=== PATIENT | female | born 1960 | race Caucasian/White ===

== ENCOUNTER 2017-01-31 23:00 | Inpatient (IN) | payer MEDICARE, MEDICAID ==
[~2017-01-31] VITALS: Ht 160 cm; Wt 67.1 kg
[~2017-01-31 23:00] MED LIST: ASPI81TA2 PO; Aspirin PO; CLOP75TA PO; CYCL10TA2 PO; FLUT1DIS3 INH; Guaifenesin PO; Hydrocodone Bit/Acetaminophen PO; Ipratropium/Albuterol Sulfate NEB; LEVO750T31 PO; METH4TAB2 PO; PANT40TA3 PO; VIT1TABL43 PO
[2017-01-31 23:30] LABS: BASO # 0.1 x10^3/uL (0.0-0.2); BASO % 1 % (0-3); EOS % 2 % (0-3); HEMATOCRIT 44.6 % (36.0-47.0); HEMOGLOBIN 14.8 g/dL (12.0-15.5); LYMPH # 2.7 x10^3/uL (1.0-4.8); LYMPH % 29 % (24-48); MEAN CORPUSCULAR HEMOGLOBIN 31 pg (25-35); MEAN CORPUSCULAR HGB CONC 33 g/dL (31-37); MEAN CORPUSCULAR VOLUME 92 fL (79-100); MONO % 8 % (0-9); NEUT % 61 % (31-73); PLATELET COUNT 248 x10^3/uL (140-400); RED BLOOD COUNT 4.84 x10^6/uL (3.50-5.40); RED CELL DISTRIBUTION WIDTH 12.9 % (11.5-14.5); WHITE BLOOD COUNT 9.5 x10^3/uL (4.0-11.0)
[2017-01-31] MEDS ORDERED: IPRATRPIUM/ALBUTEROL 0.5/2.5MG 3 ML NEBU. NEB ONE (23:30)
[2017-01-31] MEDS ORDERED: LABETALOL 20 MG/4 ML DISP.SYRIN. IVP ONE (23:30)
[2017-01-31 23:38] LABS: CALCIUM 9.4 mg/dL (8.5-10.1); CREATININE 0.6 mg/dL (0.6-1.0); GFR 102.7; POTASSIUM 3.6 mmol/L (3.5-5.1)
[2017-02-01] MEDS ORDERED: IOHEXOL 350 MG/ML 100ML VIAL. IV ONE (00:15)
[2017-02-01] MEDS ORDERED: CONTRAST GIVEN MC PRN (00:15)
--- NOTE | 2017-02-01 00:17 | RAD ---
CT head without contrast: Reason for examination: Speech problems and left arm pain. Axial images were obtained through the brain. No contrast was administered. Exposure: One or more of the following individualized dose reduction techniques were used for this examination: 1. Automated exposure control. 2. Adjustment of the mA and/or kV according to patient size. 3. Use of iterative reconstruction technique. Ventricular systems are symmetric and not abnormally dilated. No midline shift is seen. There is no evidence of intracranial hemorrhage, infarct, mass or edema. No abnormalities are seen in the orbits. The paranasal sinuses and mastoid air cells are clear. No acute abnormalities seen in the skull. Impression: No acute intracranial abnormality evident. Electronically signed by: Gisela Menard MD (Feb 01, 2017 00:16:13)
[2017-02-01] MEDS: IV NORMAL SALINE 1000ML BAG 1,000 ML IV SCH ×2 (01:00→11:00)
--- NOTE | 2017-02-01 01:02 | PHYS DOC ---
Past Medical History Past Medical History: COPD, Hypertension, Other Additional Past Medical Histor: BLOCKED BILAT ARTERIES Past Surgical History: Other Alcohol Use: None Drug Use: None Adult General Chief Complaint Chief Complaint: NEURO SYMPTOMS/DEFICITS HPI HPI This is a 56-year-old female who states she's had worsening left arm pain and some speech difficulties for the last several days. Patient did have an ultrasound performed yesterday that showed a near complete blockage of her left common carotid. Currently patient is speaking in complete sentences and does not have any speech forming difficulties on my assessment. She is complaining of some arm pain but has full sensation of her distal left arm and radial pulse is brisk and 2+. She denies any chest pain or shortness of breath. Review of Systems Review of Systems Constitutional: Denies fever or chills [] Eyes: Denies change in visual acuity, redness, or eye pain [] HENT: Denies nasal congestion or sore throat [] Respiratory: Denies cough or shortness of breath [] Cardiovascular: No additional information not addressed in HPI [] GI: Denies abdominal pain, nausea, vomiting, bloody stools or diarrhea [] : Denies dysuria or hematuria [] Musculoskeletal: Denies back pain or joint pain [] Integument: Denies rash or skin lesions [] Neurologic: Denies headache, focal weakness or sensory changes [] Endocrine: Denies polyuria or polydipsia [] Current Medications Current Medications Current Medications Medications (Trade) Dose Ordered Sig/Raymond Start Time Stop Time Status Last Admin Dose Admin Albuterol/ Ipratropium (Duoneb) 3 ml 1X ONCE 01/31/17 23:30 01/31/17 23:31 DC 01/31/17 23:31 3 ML Info (Do NOT chart on this entry -- for MONITORING) 1 each PRN DAILY PRN 02/01/17 00:15 02/01/17 22:34 DC Iohexol (Omnipaque 350 Mg/ml) 100 ml 1X ONCE 02/01/17 00:15 02/01/17 00:16 DC Labetalol HCl (Normodyne) 20 mg 1X ONCE 01/31/17 23:30 01/31/17 23:31 DC Allergies Allergies Allergies Coded Allergies Type Severity Reaction Last Updated Verified Penicillins Allergy Severe Swelling 04/07/14 Yes Physical Exam Physical Exam Constitutional: Well developed, well nourished, no acute distress, non-toxic appearance. [] HENT: Normocephalic, atraumatic, bilateral external ears normal, oropharynx moist, no oral exudates, nose normal. [] Eyes: PERRLA, EOMI, conjunctiva normal, no discharge. [] Neck: Normal range of motion, no tenderness, supple, no stridor. [] Cardiovascular:Heart rate regular rhythm, no murmur [] Lungs & Thorax: Bilateral breath sounds clear to auscultation [] Abdomen: Bowel sounds normal, soft, no tenderness, no masses, no pulsatile masses. [] Skin: Warm, dry, no erythema, no rash. [] Back: No tenderness, no CVA tenderness. [] Extremities: No tenderness, no cyanosis, no clubbing, ROM intact, no edema. [] Neurologic: Alert and oriented X 3, normal motor function, normal sensory function, no focal deficits noted. [] Psychologic: Affect normal, judgement normal, mood normal. [] Current Patient Data Vital Signs Vital Signs Date Time Temp Pulse Resp B/P Pulse Ox O2 Delivery O2 Flow Rate FiO2 02/01/17 00:00 234/91 01/31/17 23:45 82 92 Nasal Cannula 2 01/31/17 23:20 98.3 18 98.3 Lab Values Laboratory Tests Test 01/31/17 23:10 White Blood Count 9.5x10^3/uL (4.0-11.0) Red Blood Count 4.84x10^6/uL (3.50-5.40) Hemoglobin 14.8g/dL (12.0-15.5) Hematocrit 44.6% (36.0-47.0) Mean Corpuscular Volume 92fL (79-100) Mean Corpuscular Hemoglobin 31pg (25-35) Mean Corpuscular Hemoglobin Concent 33g/dL (31-37) Red Cell Distribution Width 12.9% (11.5-14.5) Platelet Count 248x10^3/uL (140-400) Neutrophils (%) (Auto) 61% (31-73) Lymphocytes (%) (Auto) 29% (24-48) Monocytes (%) (Auto) 8% (0-9) Eosinophils (%) (Auto) 2% (0-3) Basophils (%) (Auto) 1% (0-3) Neutrophils # (Auto) 5.8x10^3uL (1.8-7.7) Lymphocytes # (Auto) 2.7x10^3/uL (1.0-4.8) Monocytes # (Auto) 0.7x10^3/uL (0.0-1.1) Eosinophils # (Auto) 0.1x10^3/uL (0.0-0.7) Basophils # (Auto) 0.1x10^3/uL (0.0-0.2) Sodium Level 139mmol/L (136-145) Potassium Level 3.6mmol/L (3.5-5.1) Chloride Level 101mmol/L (98-107) Carbon Dioxide Level 29mmol/L (21-32) Anion Gap 9 (6-14) Blood Urea Nitrogen 5mg/dL (7-20) L Creatinine 0.6mg/dL (0.6-1.0) Estimated GFR (Cockcroft-Gault) 102.7 Glucose Level 144mg/dL (70-99) H Calcium Level 9.4mg/dL (8.5-10.1) Troponin I Quantitative < 0.017ng/mL (0.000-0.055) Laboratory Tests 01/31/17 23:10 Laboratory Tests 01/31/17 23:10 EKG EKG EKG as interpreted by me shows a sinus rhythm with rate of 82 bpm. There are some mild ST flattening seen in V4 to V6, leads 1-3. This EKG does not meet STEMI criteria. Intervals are normal. Radiology/Procedures Radiology/Procedures CT head without contrast: Reason for examination: Speech problems and left arm pain. Axial images were obtained through the brain. No contrast was administered. Exposure: One or more of the following individualized dose reduction techniques were used for this examination: 1. Automated exposure control. 2. Adjustment of the mA and/or kV according to patient size. 3. Use of iterative reconstruction technique. Ventricular systems are symmetric and not abnormally dilated. No midline shift is seen. There is no evidence of intracranial hemorrhage, infarct, mass or edema. No abnormalities are seen in the orbits. The paranasal sinuses and mastoid air cells are clear. No acute abnormalities seen in the skull. Impression: No acute intracranial abnormality evident. CT angiogram of the chest pre and post contrast: Reason for examination: Left arm pain. Evaluate for dissection. Comparison is made to previous study dated 05/04/2007. Helical images were obtained through the chest pre and post intravenous administration of 90 cc Omnipaque 350 using angiographic protocol. 3D MIPS reconstruction was performed in sagittal and coronal planes and volume rendered images were obtained. Exposure: One or more of the following individualized dose reduction techniques were used for this examination: 1. Automated exposure control. 2. Adjustment of the mA and/or kV according to patient size. 3. Use of iterative reconstruction technique. No abnormalities seen in the thyroid gland. The trachea and mainstem bronchi show no intraluminal lesions. No abnormalities seen in the esophagus. The thoracic aorta shows no aneurysmal dilatation or evidence of dissection. There appears to be normal blood flow in the right brachiocephalic artery. No blood flow is seen in the left common carotid artery. There is severe stenosis at the origin of the left subclavian artery. The heart size is normal with no pericardial effusion evident. There is no evidence of pulmonary embolus. There does appear to be some linear density consistent with atelectasis in the right middle lobe distribution and in the posterior medial right upper lobe. There also appears to be a small pleural-based parenchymal density anterior laterally at the right lung base in the lateral costophrenic angle measuring 1.2 centimeters in size. Followup is recommended. No pleural effusions or pneumothorax are seen. No abnormalities seen in the visualized portion of the liver, at the spleen, pancreas or adrenal glands. No cholelithiasis is evident. There is some mural plaque in the infrarenal abdominal aorta. Impression: No vascular flow in the left common carotid artery. Severe stenosis at the origin of the left subclavian artery. No thoracic aortic aneurysm or dissection. Mural plaque in the infrarenal abdominal aorta. Linear densities consistent with atelectasis in the right upper and middle lobe distribution. 1.2 millimeter pleural based pulmonary nodule anterior laterally in the right costophrenic angle. Electronically signed by: Gisela Menard MD (Feb 01, 2017 01:29:22) Portable one view of the chest as interpreted by the radiologist does not reveal any cardiopulmonary process. Course & Med Decision Making Course & Med Decision Making Pertinent Labs and Imaging studies reviewed. (See chart for details) This 56-year-old female who's having significant left arm pain with some speech wearing difficulties will be admitted to the hospital for further evaluation and treatment. A CT of her chest revealed some left subclavian artery stenosis as well as some left carotid stenosis that I would like her to be further evaluated for with vascular and neurology consult area CT of her head was unremarkable. Her portable chest x-ray did not reveal any acute abnormalities. Her blood work was unrevealing. A dose of labetalol was given for her elevated blood pressure. I discussed her case with the hospitalist, Dr. Nixon, who agreed to accept the patient for further evaluation. Dragon Disclaimer Dragon Disclaimer This electronic medical record was generated, in whole or in part, using a voice recognition dictation system. Departure Departure Impression: Primary Impression: Carotid stenosis Additional Impression: Difficulty with speech Disposition: 09 ADMITTED INPATIENT Admitting Physician: Jessie Nixon Condition: STABLE Referrals: SANJEEV GONCALVES MD (PCP) Scripts Diltiazem Hcl (Diltiazem 24HR Cd)120 Mg Cap.er.01p185 Mg PO DAILY 30 Days Prov:JESSIE NIXON MD 02/01/17 Problem Qualifiers SOPHIE GORMAN DO Feb 01, 2017 01:02
[2017-02-01] MEDS ORDERED: ONDANSETRON PF 4 MG/2 ML VIAL. IV PRN (01:15)
--- NOTE | 2017-02-01 01:18 | EKG ---
[facility] [address] [place] [address] Test Date: 2017-01-31 Test Time: 23:13:36 Pat Name: ELEAZAR MEDEIROS Department: Room: Gender: F Nurse Gynecology: : 1960 Requested By: SOPHIE GORMAN Order Number: [id number] Reading MD: Measurements Intervals [place] Rate: 82 P: 64 PA: 134 QRS: 47 QRSD: 76 T: 24 QT: 356 QTc: 419 Interpretive Statements SINUS RHYTHM T ABNORMALITY IN INFERIOR LEADS ABNORMAL ECG RI6.01 No previous ECG available for comparison
--- NOTE | 2017-02-01 01:30 | RAD ---
CT angiogram of the chest pre and post contrast: Reason for examination: Left arm pain. Evaluate for dissection. Comparison is made to previous study dated 05/04/2007. Helical images were obtained through the chest pre and post intravenous administration of 90 cc Omnipaque 350 using angiographic protocol. 3D MIPS reconstruction was performed in sagittal and coronal planes and volume rendered images were obtained. Exposure: One or more of the following individualized dose reduction techniques were used for this examination: 1. Automated exposure control. 2. Adjustment of the mA and/or kV according to patient size. 3. Use of iterative reconstruction technique. No abnormalities seen in the thyroid gland. The trachea and mainstem bronchi show no intraluminal lesions. No abnormalities seen in the esophagus. The thoracic aorta shows no aneurysmal dilatation or evidence of dissection. There appears to be normal blood flow in the right brachiocephalic artery. No blood flow is seen in the left common carotid artery. There is severe stenosis at the origin of the left subclavian artery. The heart size is normal with no pericardial effusion evident. There is no evidence of pulmonary embolus. There does appear to be some linear density consistent with atelectasis in the right middle lobe distribution and in the posterior medial right upper lobe. There also appears to be a small pleural-based parenchymal density anterior laterally at the right lung base in the lateral costophrenic angle measuring 1.2 centimeters in size. Followup is recommended. No pleural effusions or pneumothorax are seen. No abnormalities seen in the visualized portion of the liver, at the spleen, pancreas or adrenal glands. No cholelithiasis is evident. There is some mural plaque in the infrarenal abdominal aorta. Impression: No vascular flow in the left common carotid artery. Severe stenosis at the origin of the left subclavian artery. No thoracic aortic aneurysm or dissection. Mural plaque in the infrarenal abdominal aorta. Linear densities consistent with atelectasis in the right upper and middle lobe distribution. 1.2 millimeter pleural based pulmonary nodule anterior laterally in the right costophrenic angle. Electronically signed by: Gisela Menard MD (Feb 01, 2017 01:29:22)
[2017-02-01 01:40] VITALS: BP 143/81
--- NOTE | 2017-02-01 01:57 | ACF ---
Admission Forms Criteria HYPERTENSION Clinical Indications for Admission to Inpatient Care ( Place "X" for any and all applicable criteria): Admission is indicated for ANY ONE of the following(1)(2)(3)(4): [ ]I. Hypertensive emergency, with evidence of acute and progressing target organ disease as indicated by ANY ONE of the following: [ ]a) Hypertensive encephalopathy (eg, confusion, altered mental status) [ ]b) Cerebral infarction [ ]c) Intracranial hemorrhage [ ]d) Myocardial ischemia or infarction [ ]e) Pulmonary edema [ ]f) Aortic dissection [ ]g) Seizure [ ]h) Acute renal insufficiency [ ]i) Papilledema [ ]j) Microangiopathic hemolytic anemia [ ]II. Adrenergic crisis (eg, severe hypertension due to pheochromocytoma crisis, cocaine or amphetamine intoxication, or clonidine withdrawal) [X]III. Severe hypertension (SBP greater than 180 mmHg or DBP greater than 110 mmHg or greater than the 95th percentile for age, gender, and height in pediatric patients) that cannot be controlled (eg, to SBP less than 160 mmHg and DBP less than 100 mmHg in adults) by treatment with oral medication in emergency department or observation care Extended stay beyond goal length of stay may be needed for(11)(12)(13): [ ]a) Persistent hypertensive encephalopathy [ ]b) Continuation of pulmonary edema [ ]c) Recurring or persistent severe hypertension [ ]d) Target organ damage (eg, angina, stroke, aortic dissection) [ ]e) Associated renal insufficiency The original [facility] content created by [employer] has been revised. The portions of the content which have been revised are identified through the use of italic text or in bold, and [email or web address] has neither reviewed nor approved the modified material. All other unmodified content is copyright [facility]. Please see references footnoted in the original [facility] edition 2016 Admission Criteria Met?: Yes NONA NG Feb 01, 2017 01:57
[2017-02-01] MEDS ORDERED: PROAIR HFA8.5 GM INH (02:42)
--- NOTE | 2017-02-01 07:35 | PDOC2 ---
CARDIAC CONSULT DATE OF CONSULT Date of Consult DATE: 02/01/17 TIME: 07:31 REASON FOR CONSULT Reason for Consult: Chest pain REFERRING PHYSICIAN Referring Physician: Chance SOURCE Source: Chart review, Patient PAST MEDICAL HISTORY Past Medical History Pulmonary: COPD, Other (SOY using oxygen at night) CENTRAL NERVOUS SYSTEM: Other (denies) GI: GERD Heme/Onc: No pertinent hx Hepatobiliary: No pertinent hx Psych: No pertinent hx Musculoskeletal: Osteoarthritis Rheumatologic: No pertinent hx Infectious disease: No pertinent hx ENT: No pertinent hx Renal/: No pertinent hx Endocrine: No pertinent hx Dermatology: No pertinent hx Grav: 7 (2 miscarriages) Para: 5 FAMILY HISTORY Family History Father ESRD and mother with DM SOCIAL HISTORY Smoke: <1 pack per day ALCOHOL: none Drugs: None Lives: with Family Domestic Violence: Neg PAST SURGICAL HISTORY Past Surgical History Esophageal dilatation, Left CEA, Right iliac artery angioplasty. CURRENT MEDICATIONS CURRENT MEDICATIONS Current Medications Medications (Trade) Dose Ordered Sig/Raymond Route PRN Reason Start Time Stop Time Status Last Admin Dose Admin Albuterol/ Ipratropium 3 ml 3 ml 1X ONCE NEB 01/31/17 23:30 01/31/17 23:31 DC 01/31/17 23:31 Sodium Chloride (Iv Sodium Chloride 0.9% 1000ml Bag) 1,000 ml @ 100 mls/hr Q10H IV 02/01/17 01:00 02/02/17 00:59 02/01/17 01:00 ALLERGIES ALLERGIES: Coded Allergies: Penicillins (Verified Allergy, Severe, Swelling, 04/07/14) VITALS VITALS Vital Signs Date Time Temp Pulse Resp B/P Pulse Ox O2 Delivery O2 Flow Rate FiO2 02/01/17 02:42 74 02/01/17 01:40 97.6 22 143/81 91 Nasal Cannula 2.0 97.6 LABS Lab: Laboratory Tests Test 01/31/17 23:10 White Blood Count 9.5x10^3/uL (4.0-11.0) Red Blood Count 4.84x10^6/uL (3.50-5.40) Hemoglobin 14.8g/dL (12.0-15.5) Hematocrit 44.6% (36.0-47.0) Mean Corpuscular Volume 92fL (79-100) Mean Corpuscular Hemoglobin 31pg (25-35) Mean Corpuscular Hemoglobin Concent 33g/dL (31-37) Red Cell Distribution Width 12.9% (11.5-14.5) Platelet Count 248x10^3/uL (140-400) Neutrophils (%) (Auto) 61% (31-73) Lymphocytes (%) (Auto) 29% (24-48) Monocytes (%) (Auto) 8% (0-9) Eosinophils (%) (Auto) 2% (0-3) Basophils (%) (Auto) 1% (0-3) Neutrophils # (Auto) 5.8x10^3uL (1.8-7.7) Lymphocytes # (Auto) 2.7x10^3/uL (1.0-4.8) Monocytes # (Auto) 0.7x10^3/uL (0.0-1.1) Eosinophils # (Auto) 0.1x10^3/uL (0.0-0.7) Basophils # (Auto) 0.1x10^3/uL (0.0-0.2) Sodium Level 139mmol/L (136-145) Potassium Level 3.6mmol/L (3.5-5.1) Chloride Level 101mmol/L (98-107) Carbon Dioxide Level 29mmol/L (21-32) Anion Gap 9 (6-14) Blood Urea Nitrogen 5mg/dL (7-20) Creatinine 0.6mg/dL (0.6-1.0) Estimated GFR (Cockcroft-Gault) 102.7 Glucose Level 144mg/dL (70-99) Calcium Level 9.4mg/dL (8.5-10.1) Troponin I Quantitative < 0.017ng/mL (0.000-0.055) TIERA PRUITT APRN Feb 01, 2017 07:35
[2017-02-01 07:50] VITALS: BP 177/75
[2017-02-01 08:03] VITALS: BP 121/57
--- NOTE | 2017-02-01 08:09 | RAD ---
Indication arm pain. A single view of the chest was obtained. Comparison is made to a study 04/07/2014. The heart and pulmonary vessels appear normal. The lungs are clear. There is no pleural fluid or pneumothorax. The bony structures appear grossly intact. IMPRESSION: No acute finding apparent in the chest
--- NOTE | 2017-02-01 08:30 | CONS ---
DATE OF CONSULTATION: 02/01/2017 REASON FOR CONSULTATION: Left arm pain. HISTORY OF PRESENT ILLNESS: The patient is a 56-year-old woman who comes to the hospital due to progressive left arm pain. She reports that over the last several weeks she has had left arm and shoulder pain to a point where she has had difficulty using the arm. She reports the pain does not always occur with exertion and can sometimes also occur with rest. She denies any obvious paraesthesias, but just has throbbing pain. Of note, she has prior vascular history as detailed below. The patient has chronic longstanding dyspnea related to her COPD and smoking and uses oxygen at nighttime, but denies any current chest pain. She has not had any syncope or palpitations. PAST MEDICAL HISTORY: 1. COPD. 2. Hypertension. 3. Peripheral vascular disease, status post right common carotid to left internal carotid artery bypass with Dr. Villavicencio. The patient also has a severe left subclavian stenosis on prior peripheral angiogram. ALLERGIES: PENICILLINS. FAMILY HISTORY: Noncontributory. 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 She reports alcohol use occasionally and smokes cigarettes. REVIEW OF SYSTEMS: Negative for 10 out of 14 systems reviewed unless otherwise mentioned above in HPI. CURRENT CARDIOVASCULAR MEDICATION: Aspirin 81 mg daily. PHYSICAL EXAMINATION: VITAL SIGNS: Afebrile, heart rate 84, blood pressure 234/91 initially and now down to 143/81 after being given labetalol 20 mg IV push x 1. GENERAL: She is alert ad oriented, in no acute distress. HEAD AND NECK: Unremarkable. CARDIAC: Regular rate and rhythm without any obvious murmurs, rubs or gallops. LUNGS: Clear to auscultation bilaterally. ABDOMEN: Soft, nontender and nondistended. NEUROLOGIC: No focal deficits. EXTREMITIES: Diminished left radial pulses. 2+ right radial pulse. Diminished pedal pulses. PSYCHIATRIC: Normal affect and mood. MUSCULOSKELETAL: No trauma. DIAGNOSTIC STUDIES: CTA of the chest today reveals left common carotid artery occlusion. There is severe stenosis of the left subclavian artery. No obvious thoracic aortic aneurysm or dissection is identified. Coronary angiogram performed in 04/2016 demonstrates no significant coronary artery disease with preserved LV systolic function. IMPRESSION: 1. Left arm pain, likely secondary to severe left subclavian stenosis. 2. Malignancy hypertension. 3. Peripheral vascular disease as noted above. 4. Tobacco abuse. 5. Chronic obstructive pulmonary disease. RECOMMENDATIONS: 1. We will start the patient on an antihypertensive regimen to help better control her blood pressure once her home medications are clarified. 2. Could consider initiation of dual antiplatelet therapy with aspirin and Plavix, but we will await evaluation by Vascular Surgery. Her subclavian stenosis can likely be treated endovascularly or surgically depending on recommendations from Vascular Surgery. We would be happy to stent her endovascularly. The patient wishes to definitely leave today as it is her granddaughter's birthday and schedule any procedures on an outpatient basis. From a cardiac perspective, she does not need to be admitted after today. We will initiate her on medical therapy for her hypertension. Thank you for this consultation. CHIKA ENCISO MD DR: CORKY/louis JOB#: [id number] / [id number]
[2017-02-01] MEDS ORDERED: DILTIAZEM HCL 120 MG CAP.ER.24H PO SCH (09:00)
[2017-02-01 09:45] LABS: BACTERIA,URINE 0 /HPF (0-FEW); BILIRUBIN,URINE NEGATIVE (NEG); GLUCOSE,URINE NEGATIVE (NEG); NITRITE,URINE NEGATIVE (NEG); PH,URINE 5.5; PROTEIN,URINE NEGATIVE (NEG-TRACE); RBC,URINE 0 /HPF (0-2); SQUAMOUS EPITHELIAL CELL,UR MOD /LPF; UROBILINOGEN,URINE 0.2 mg/dL (0.2 mg/dL); WBC,URINE 0 /HPF (0-4)
[2017-02-01 11:29] VITALS: BP 177/73
--- NOTE | 2017-02-01 11:48 | PDOC ---
PROGRESS NOTES Subjective Subjective Patient reports left arm pain is some better than at admission. Very anxious to return home today as it is her granddaughter's birthday and she is her caregiver. Objective Objective Vital Signs Date Time Temp Pulse Resp B/P Pulse Ox O2 Delivery O2 Flow Rate FiO2 02/01/17 10:48 74 189/87 02/01/17 08:00 Nasal Cannula 2.0 02/01/17 07:50 98.4 19 98.4 02/01/17 01:40 91 Intake and Output 02/01/17 07:00 Intake Total 500 ml Output Total 300 ml Balance 200 ml Intake Oral 500 ml Output Urine Total 300 ml Physical Exam Abdomen: Normal bowel sounds, Soft, No tenderness Heart: Regular rate Extremities: No edema General: Alert, Oriented X3, No acute distress Lungs: Other (BS moderately decreased throughout, scant expiratory wheezes present) Assessment Assessment Problems Medical Problems: (1) Carotid stenosis Status: Acute (2) Difficulty with speech Status: Acute Plan Plan of Care 1. Left subclavian stenosis - significant stenosis seen on CT. Cardiology recommends treatment of this, waiting for Vascular Surgery input today. Patient prefers to go home today, if possible, and return for treatment next week or as advised. Continue ASA. Patient had been on Plavix in the past but had stopped taking as it upset her stomach. Cardiac cath last April showed preserved EF and no significant CAD. 2. HTN - patient's BP significantly elevated on admission yesterday, and at last OV with Dr East. Had not been on medication for this in the past. Started on Cardizem by Cardiology, will discharge with prescription for this. 3. COPD with chronic respiratory failure - still smoking but realizes she needs to try to stop. Discussed. Using an electronic cigarette, encouraged to continue to work on this. 4. hyperglycemia - glucose significantly elevated on admission lab. Patient admits she has been drinking a lot of Dr Sanches and recognizes she needs to cut back on this. Follow up with Dr East for further evaluation of her blood sugar. 5. hyperlipidemia - patient had been on Simvastatin but stopped taking months ago, advised to resume. 6. chronic leg pain - continue [place], follow up in office for this. Comment Review of Relevant I have reviewed the following items shanthi (where applicable) has been applied. Labs Laboratory Tests Test 01/31/17 23:10 02/01/17 05:40 White Blood Count 9.5x10^3/uL (4.0-11.0) Red Blood Count 4.84x10^6/uL (3.50-5.40) Hemoglobin 14.8g/dL (12.0-15.5) Hematocrit 44.6% (36.0-47.0) Mean Corpuscular Volume 92fL (79-100) Mean Corpuscular Hemoglobin 31pg (25-35) Mean Corpuscular Hemoglobin Concent 33g/dL (31-37) Red Cell Distribution Width 12.9% (11.5-14.5) Platelet Count 248x10^3/uL (140-400) Neutrophils (%) (Auto) 61% (31-73) Lymphocytes (%) (Auto) 29% (24-48) Monocytes (%) (Auto) 8% (0-9) Eosinophils (%) (Auto) 2% (0-3) Basophils (%) (Auto) 1% (0-3) Neutrophils # (Auto) 5.8x10^3uL (1.8-7.7) Lymphocytes # (Auto) 2.7x10^3/uL (1.0-4.8) Monocytes # (Auto) 0.7x10^3/uL (0.0-1.1) Eosinophils # (Auto) 0.1x10^3/uL (0.0-0.7) Basophils # (Auto) 0.1x10^3/uL (0.0-0.2) Sodium Level 139mmol/L (136-145) Potassium Level 3.6mmol/L (3.5-5.1) Chloride Level 101mmol/L (98-107) Carbon Dioxide Level 29mmol/L (21-32) Anion Gap 9 (6-14) Blood Urea Nitrogen 5mg/dL (7-20) Creatinine 0.6mg/dL (0.6-1.0) Estimated GFR (Cockcroft-Gault) 102.7 Glucose Level 144mg/dL (70-99) Calcium Level 9.4mg/dL (8.5-10.1) Troponin I Quantitative < 0.017ng/mL (0.000-0.055) Urine Collection Type Unknown Urine Color Yellow Urine Clarity Clear Urine pH 5.5 Urine Specific [place] <=1.005 Urine Protein Negativemg/dL (NEG-TRACE) Urine Glucose (UA) Negativemg/dL (NEG) Urine Ketones (Stick) Negativemg/dL (NEG) Urine Blood Negative (NEG) Urine Nitrite Negative (NEG) Urine Bilirubin Negative (NEG) Urine Urobilinogen Dipstick 0.2mg/dL (0.2 mg/dL) Urine Leukocyte Esterase Negative (NEG) Urine RBC 0/HPF (0-2) Urine WBC 0/HPF (0-4) Urine Squamous Epithelial Cells Mod/LPF Urine Bacteria 0/HPF (0-FEW) Urine Mucus Slight/LPF Laboratory Tests Test 01/31/17 23:10 02/01/17 05:40 White Blood Count 9.5x10^3/uL (4.0-11.0) Red Blood Count 4.84x10^6/uL (3.50-5.40) Hemoglobin 14.8g/dL (12.0-15.5) Hematocrit 44.6% (36.0-47.0) Mean Corpuscular Volume 92fL (79-100) Mean Corpuscular Hemoglobin 31pg (25-35) Mean Corpuscular Hemoglobin Concent 33g/dL (31-37) Red Cell Distribution Width 12.9% (11.5-14.5) Platelet Count 248x10^3/uL (140-400) Neutrophils (%) (Auto) 61% (31-73) Lymphocytes (%) (Auto) 29% (24-48) Monocytes (%) (Auto) 8% (0-9) Eosinophils (%) (Auto) 2% (0-3) Basophils (%) (Auto) 1% (0-3) Neutrophils # (Auto) 5.8x10^3uL (1.8-7.7) Lymphocytes # (Auto) 2.7x10^3/uL (1.0-4.8) Monocytes # (Auto) 0.7x10^3/uL (0.0-1.1) Eosinophils # (Auto) 0.1x10^3/uL (0.0-0.7) Basophils # (Auto) 0.1x10^3/uL (0.0-0.2) Sodium Level 139mmol/L (136-145) Potassium Level 3.6mmol/L (3.5-5.1) Chloride Level 101mmol/L (98-107) Carbon Dioxide Level 29mmol/L (21-32) Anion Gap 9 (6-14) Blood Urea Nitrogen 5mg/dL (7-20) Creatinine 0.6mg/dL (0.6-1.0) Estimated GFR (Cockcroft-Gault) 102.7 Glucose Level 144mg/dL (70-99) Calcium Level 9.4mg/dL (8.5-10.1) Troponin I Quantitative < 0.017ng/mL (0.000-0.055) Urine Collection Type Unknown Urine Color Yellow Urine Clarity Clear Urine pH 5.5 Urine Specific [place] <=1.005 Urine Protein Negativemg/dL (NEG-TRACE) Urine Glucose (UA) Negativemg/dL (NEG) Urine Ketones (Stick) Negativemg/dL (NEG) Urine Blood Negative (NEG) Urine Nitrite Negative (NEG) Urine Bilirubin Negative (NEG) Urine Urobilinogen Dipstick 0.2mg/dL (0.2 mg/dL) Urine Leukocyte Esterase Negative (NEG) Urine RBC 0/HPF (0-2) Urine WBC 0/HPF (0-4) Urine Squamous Epithelial Cells Mod/LPF Urine Bacteria 0/HPF (0-FEW) Urine Mucus Slight/LPF Medications Current Medications Albuterol/ Ipratropium (Duoneb) 3 ml 1X ONCE NEB Last administered on t 23:31; Start 01/31/17 at 23:30; Stop 01/31/17 at 23:31; Status DC Labetalol HCl (Normodyne) 20 mg 1X ONCE IVP ; Start 01/31/17 at 23:30; Stop at 23:31; Status DC Iohexol (Omnipaque 350 Mg/ml) 100 ml 1X ONCE IV ; Start 02/01/17 at 00:15; Stop 02/01/17 at 00:16; Status DC Info (Do NOT chart on this entry -- for MONITORING) 1 each PRN DAILY PRN MC SEE COMMENTS; Start 02/01/17 at 00:15; Stop 02/03/17 at 00:14 Ondansetron HCl 4 mg 4 mg PRN Q8HRS PRN IV NAUSEA/VOMITING; Start 02/01/17 at 01:15; Stop 02/02/17 at 01:14 Sodium Chloride (Iv Sodium Chloride 0.9% 1000ml Bag) 1,000 ml @ 100 mls/hr Q10H IV Last administered on 02/01/17 01:00; Start 02/01/17 at 01:00; Stop at 00:59 Diltiazem HCl (Cardizem 24hr Cd) 120 mg DAILY PO Last administered on 10:48; Start 02/01/17 at 09:00 Active Scripts Active Reported Proair Hfa Inhaler (Albuterol Sulfate) 8.5 Gm Hfa.aer.ad 2 Puff INH PRN Q6HRS PRN Aspirin 81 Mg Tab.chew 1 Tab PO DAILY Vitals/I & O Vital Sign - Last 24 Hours 01/31/17 01/31/17 01/31/17 01/31/17 23:00 23:15 23:20 23:30 Temp 98.3 98.3 Pulse 86 93 84 Resp 18 B/P 201/115 201/115 143/81 Pulse Ox 93 93 O2 Delivery Nasal Cannula Nasal Cannula O2 Flow Rate 2 2 01/31/17 01/31/17 01/31/17 01/31/17 23:30 23:30 23:30 23:32 Pulse 80 B/P 163/76 90/66 Pulse Ox 91 92 O2 Delivery Nasal Cannula Nasal Cannula O2 Flow Rate 2 2.0 01/31/17 02/01/17 02/01/17 02/01/17 23:45 00:00 00:30 01:00 Pulse 82 90 B/P 160/77 234/91 144/70 Pulse Ox 92 91 O2 Delivery Nasal Cannula Nasal Cannula O2 Flow Rate 2 2 02/01/17 02/01/17 02/01/17 02/01/17 01:30 01:40 02:42 07:50 Temp 97.6 98.4 97.6 98.4 Pulse 84 74 71 Resp 22 19 B/P 143/81 177/75 Pulse Ox 91 O2 Delivery Nasal Cannula Nasal Cannula Nasal Cannula O2 Flow Rate 2.0 2.0 2.0 02/01/17 02/01/17 02/01/17 08:00 08:03 10:48 Pulse 73 74 B/P 121/57 189/87 O2 Delivery Nasal Cannula O2 Flow Rate 2.0 Intake and Output 01/31/17 01/31/17 02/01/17 15:00 23:00 07:00 Intake Total 500 ml Output Total 300 ml Balance 200 ml JOSE CAN MD Feb 01, 2017 11:48
[2017-02-01] MEDS ORDERED: DILT120C97 PO (11:51)
[2017-02-01] MEDS ORDERED: ASPIRIN 81 MG TAB.CHEW PO SCH (12:30)
[2017-02-01 14:09] VITALS: BP 174/93
--- NOTE | 2017-02-01 15:20 | DS ---
DATE OF DISCHARGE: 02/01/2017 CHIEF COMPLAINT: Left arm pain. HISTORY OF PRESENT ILLNESS: The patient is a 56-year-old female with known peripheral artery disease who presented to the Emergency Room with the above complaint. She reports a several-week history of increasing pain in the left hand and arm. The pain could occur with rest or with exertion. She chronically takes hydrocodone for leg pain, but this was not treating her arm pain effectively. When seen in the Emergency Room, her blood pressure was initially 234/91, this improved after one dose of IV labetalol. A CTA of the chest showed severe stenosis of the left subclavian artery and the patient was admitted for further treatment. PAST MEDICAL HISTORY: Hyperlipidemia, peripheral artery disease, COPD with chronic respiratory failure; the patient is on oxygen at night, peripheral neuropathy, and GERD. PAST SURGICAL HISTORY: Left carotid endarterectomy in 2007, bilateral iliac artery angioplasty in 2009. ALLERGIES: THE PATIENT IS ALLERGIC TO PENICILLIN. HOME MEDICATIONS: Albuterol p.r.n., hydrocodone p.r.n., gabapentin 300 mg 1-2 times daily, meloxicam 15 mg daily, oxygen 2 liters per nasal cannula at bedtime, Dexilant 60 mg daily; the patient has recently been prescribed this, but had not started taking it yet, aspirin 81 mg daily, simvastatin 20 mg daily; the patient has not taken this for several months, Plavix 75 mg daily; the patient also stopped taking this as she felt it upsets her stomach. FAMILY HISTORY: Noncontributory. SOCIAL HISTORY: The patient is . She continues to smoke cigarettes about 1 pack per day. She does not drink alcohol to excess. REVIEW OF SYSTEMS: The patient denies fever or chills. She denies unusual shortness of air. She does have a chronic cough, but this does not seem worse to her recently. She denies chest pain or palpitations. She has had some epigastric discomfort and heartburn and is aware that the Dexilant could help her with this. She denies lower abdominal or pelvic pain, nausea or vomiting. She denies lower extremity edema. Her chronic leg pain has been fairly well controlled with her usual hydrocodone. PHYSICAL EXAMINATION: GENERAL: The patient is alert and oriented x 3, resting comfortably in bed, in no acute distress. HEENT: PERRL, EOMI, sclerae clear. Oropharynx: Mucous membranes moist. NECK: Supple, without lymphadenopathy. RESPIRATORY: Chest: Breath sounds are moderately decreased throughout with scant expiratory wheezes. CARDIOVASCULAR: Regular rate and rhythm without murmur. ABDOMEN: Soft, nontender, normoactive bowel sounds are present. EXTREMITIES: Without edema. HOSPITAL COURSE: Vascular Surgery has been consulted and it is hoped that they will be able to see her today. 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 Dr. Blakely feels that she is stable and could be discharged if vascular surgery is in agreement. She will need definitive treatment of this stenosis whether by the Vascular Surgeon's or Cardiology. We will not resume her Plavix at this time, as she was intolerant of it and it would need to be held anyway if surgery is anticipated. The patient is advised to continue aspirin daily. The patient does not have a history of hypertension, but her blood pressure was significantly elevated at her last office visit with Dr. East. Dr. Blakely has started her on a low dose of Cardizem for treatment of this and she is advised to continue this daily. The patient's chronic respiratory failure and COPD appear stable. She is, of course, strongly advised smoking cessation and she is aware of the need for this. She has started to use an electronic cigarette and is encouraged to continue to work on this. She had significant hyperglycemia on her admission lab with a glucose of 144. She denies a history of diabetes, but admits she has been drinking a large amount of Dr Pepper daily. She is advised to cut down on this and follow up with Dr. East as an outpatient for further evaluation of her blood sugar. The patient has hyperlipidemia. The importance of treatment for this was discussed with her and she is advised to resume the simvastatin, she had previously been prescribed. Her chronic leg pain appears stable with her usual hydrocodone. She will be discharged to home today if all consultants are in agreement. FINAL DIAGNOSES: 1. Left subclavian artery stenosis. 2. Hypertension. 3. Chronic obstructive pulmonary disease with chronic respiratory failure. 4. Hyperglycemia. 5. Hyperlipidemia. 6. Chronic leg pain. DISCHARGE MEDICATIONS: Remain the same as at admission with the addition of diltiazem-CD 120 mg daily. DISCHARGE INSTRUCTIONS: Follow up with Dr. East within 2 weeks. Follow up with consultants as advised. JOSE CAN MD DR: CHRISTIE/louis JOB#: [id number] / [id number] IVY
--- NOTE | 2017-02-01 17:26 | PDOC2 ---
CONSULT Date of Consult Date of Consult DATE: 02/01/17 TIME: 17:18 Reason for Consult Reason for Consult: Left arm pain, and weakness. History of Present Illness Reason for Visit: This patient is 56-year-old female who presented to the emergency room with complaint of left arm pain. Patient reports she is having a history of chronic pain in his left she hasn't noticed worsening of symptoms if she is using his arm more. Patient does not know if she has any known history of disc disease in her cervical spine. Patient presented in the emergency room her blood pressures were elevated in 200s. She was given dose of labetalol. She also had a CTA of chest which showed severe stenosis of left subclavian artery. Patient also has a history of left CEA. Patient currently denies any symptoms of difficulty swallowing, speaking, headache, fever, chest pain, shortness of breath, weakness. Past Medical History Cardiovascular: HTN, Hyperlipidemia, Other Pulmonary: COPD, Other CENTRAL NERVOUS SYSTEM: Other GI: GERD Heme/Onc: No pertinent hx Hepatobiliary: No pertinent hx Psych: No pertinent hx Musculoskeletal: Osteoarthritis Rheumatologic: No pertinent hx Infectious disease: No pertinent hx Renal/: No pertinent hx Endocrine: No pertinent hx Social History ALCOHOL: none Drugs: None Lives: with Family Domestic Violence: Neg Current Problem List Problem List Problems Medical Problems: (1) Carotid stenosis Status: Acute (2) Difficulty with speech Status: Acute (3) Subclavian artery stenosis, left Status: Acute Current Medications Current Medications Current Medications Albuterol/ Ipratropium (Duoneb) 3 ml 1X ONCE NEB Last administered on t 23:31; Start 01/31/17 at 23:30; Stop 01/31/17 at 23:31; Status DC Labetalol HCl (Normodyne) 20 mg 1X ONCE IVP ; Start 01/31/17 at 23:30; Stop at 23:31; Status DC Iohexol (Omnipaque 350 Mg/ml) 100 ml 1X ONCE IV ; Start 02/01/17 at 00:15; Stop 02/01/17 at 00:16; Status DC Info (Do NOT chart on this entry -- for MONITORING) 1 each PRN DAILY PRN MC SEE COMMENTS; Start 02/01/17 at 00:15; Stop 02/03/17 at 00:14 Ondansetron HCl 4 mg 4 mg PRN Q8HRS PRN IV NAUSEA/VOMITING; Start 02/01/17 at 01:15; Stop 02/02/17 at 01:14 Sodium Chloride (Iv Sodium Chloride 0.9% 1000ml Bag) 1,000 ml @ 100 mls/hr Q10H IV Last administered on 02/01/17 01:00; Start 02/01/17 at 01:00; Stop at 00:59 Diltiazem HCl (Cardizem 24hr Cd) 120 mg DAILY PO Last administered on 10:48; Start 02/01/17 at 09:00 Aspirin (Children'S Aspirin) 81 mg DAILY PO Last administered on 02/01/17 14: 10; Start 02/01/17 at 12:30 Active Scripts Active Reported Proair Hfa Inhaler (Albuterol Sulfate) 8.5 Gm Hfa.aer.ad 2 Puff INH PRN Q6HRS PRN Aspirin 81 Mg Tab.chew 1 Tab PO DAILY Allergies Allergies: Coded Allergies: Penicillins (Verified Allergy, Severe, Swelling, 04/07/14) Physical Exam Physical Exam REVIEW OF SYSTEMS: not [id number] review of systems. PHYSICAL EXAMINATION: General appearance is in acute distress. HEENT: Normocephalic and nontraumatic. Eyes, nose, ears, and throat are unremarkable. Neck is supple. No lymphadenopathy. No crepitus. Cardiovascular: S1, S2, regular rate and rhythm. Pulmonary: Clear to auscultation bilaterally. Abdomen: Bowel sounds are positive. Abdomen is soft, nontender, and nondistended. Extremities: No rash, lesions, or edema. No restriction of range of motion NEUROLOGICAL EXAMINATION: Alert Oriented to time, place and person. PERRL. EOMI. CN: no focal findings. Muscle tone: within normal. Muscle strength: good DTR: 1- 2 Plantar reflex: Flexor response bilaterally Gait: not examined in bed. Sensory exam: no abnormal findings. No obvious cerebellar signs elicited. Vitals VITALS Vital Signs Date Time Temp Pulse Resp B/P Pulse Ox O2 Delivery O2 Flow Rate FiO2 02/01/17 14:09 97.8 88 20 174/93 Nasal Cannula 2.0 97.8 02/01/17 01:40 91 Labs Labs Laboratory Tests Test 01/31/17 23:10 02/01/17 05:40 White Blood Count 9.5x10^3/uL (4.0-11.0) Red Blood Count 4.84x10^6/uL (3.50-5.40) Hemoglobin 14.8g/dL (12.0-15.5) Hematocrit 44.6% (36.0-47.0) Mean Corpuscular Volume 92fL (79-100) Mean Corpuscular Hemoglobin 31pg (25-35) Mean Corpuscular Hemoglobin Concent 33g/dL (31-37) Red Cell Distribution Width 12.9% (11.5-14.5) Platelet Count 248x10^3/uL (140-400) Neutrophils (%) (Auto) 61% (31-73) Lymphocytes (%) (Auto) 29% (24-48) Monocytes (%) (Auto) 8% (0-9) Eosinophils (%) (Auto) 2% (0-3) Basophils (%) (Auto) 1% (0-3) Neutrophils # (Auto) 5.8x10^3uL (1.8-7.7) Lymphocytes # (Auto) 2.7x10^3/uL (1.0-4.8) Monocytes # (Auto) 0.7x10^3/uL (0.0-1.1) Eosinophils # (Auto) 0.1x10^3/uL (0.0-0.7) Basophils # (Auto) 0.1x10^3/uL (0.0-0.2) Sodium Level 139mmol/L (136-145) Potassium Level 3.6mmol/L (3.5-5.1) Chloride Level 101mmol/L (98-107) Carbon Dioxide Level 29mmol/L (21-32) Anion Gap 9 (6-14) Blood Urea Nitrogen 5mg/dL (7-20) Creatinine 0.6mg/dL (0.6-1.0) Estimated GFR (Cockcroft-Gault) 102.7 Glucose Level 144mg/dL (70-99) Calcium Level 9.4mg/dL (8.5-10.1) Troponin I Quantitative < 0.017ng/mL (0.000-0.055) Urine Collection Type Unknown Urine Color Yellow Urine Clarity Clear Urine pH 5.5 Urine Specific [place] <=1.005 Urine Protein Negativemg/dL (NEG-TRACE) Urine Glucose (UA) Negativemg/dL (NEG) Urine Ketones (Stick) Negativemg/dL (NEG) Urine Blood Negative (NEG) Urine Nitrite Negative (NEG) Urine Bilirubin Negative (NEG) Urine Urobilinogen Dipstick 0.2mg/dL (0.2 mg/dL) Urine Leukocyte Esterase Negative (NEG) Urine RBC 0/HPF (0-2) Urine WBC 0/HPF (0-4) Urine Squamous Epithelial Cells Mod/LPF Urine Bacteria 0/HPF (0-FEW) Urine Mucus Slight/LPF Laboratory Tests Test 01/31/17 23:10 02/01/17 05:40 White Blood Count 9.5x10^3/uL (4.0-11.0) Red Blood Count 4.84x10^6/uL (3.50-5.40) Hemoglobin 14.8g/dL (12.0-15.5) Hematocrit 44.6% (36.0-47.0) Mean Corpuscular Volume 92fL (79-100) Mean Corpuscular Hemoglobin 31pg (25-35) Mean Corpuscular Hemoglobin Concent 33g/dL (31-37) Red Cell Distribution Width 12.9% (11.5-14.5) Platelet Count 248x10^3/uL (140-400) Neutrophils (%) (Auto) 61% (31-73) Lymphocytes (%) (Auto) 29% (24-48) Monocytes (%) (Auto) 8% (0-9) Eosinophils (%) (Auto) 2% (0-3) Basophils (%) (Auto) 1% (0-3) Neutrophils # (Auto) 5.8x10^3uL (1.8-7.7) Lymphocytes # (Auto) 2.7x10^3/uL (1.0-4.8) Monocytes # (Auto) 0.7x10^3/uL (0.0-1.1) Eosinophils # (Auto) 0.1x10^3/uL (0.0-0.7) Basophils # (Auto) 0.1x10^3/uL (0.0-0.2) Sodium Level 139mmol/L (136-145) Potassium Level 3.6mmol/L (3.5-5.1) Chloride Level 101mmol/L (98-107) Carbon Dioxide Level 29mmol/L (21-32) Anion Gap 9 (6-14) Blood Urea Nitrogen 5mg/dL (7-20) Creatinine 0.6mg/dL (0.6-1.0) Estimated GFR (Cockcroft-Gault) 102.7 Glucose Level 144mg/dL (70-99) Calcium Level 9.4mg/dL (8.5-10.1) Troponin I Quantitative < 0.017ng/mL (0.000-0.055) Urine Collection Type Unknown Urine Color Yellow Urine Clarity Clear Urine pH 5.5 Urine Specific [place] <=1.005 Urine Protein Negativemg/dL (NEG-TRACE) Urine Glucose (UA) Negativemg/dL (NEG) Urine Ketones (Stick) Negativemg/dL (NEG) Urine Blood Negative (NEG) Urine Nitrite Negative (NEG) Urine Bilirubin Negative (NEG) Urine Urobilinogen Dipstick 0.2mg/dL (0.2 mg/dL) Urine Leukocyte Esterase Negative (NEG) Urine RBC 0/HPF (0-2) Urine WBC 0/HPF (0-4) Urine Squamous Epithelial Cells Mod/LPF Urine Bacteria 0/HPF (0-FEW) Urine Mucus Slight/LPF Assessment/Plan Assessment/Plan This patient is 56-year-old female who presented to the emergency room with complaint of left arm pain. Patient reports she is having a history of chronic pain in his left she hasn't noticed worsening of symptoms if she is using his arm more. Patient does not know if she has any known history of disc disease in her cervical spine. Patient presented in the emergency room her blood pressures were elevated in 200s. She was given dose of labetalol. She also had a CTA of chest which showed severe stenosis of left subclavian artery. Patient also has a history of left CEA. Patient currently denies any symptoms of difficulty swallowing, speaking, headache, fever, chest pain, shortness of breath, weakness. Left subclavian artery stenosis Vascular evaluation History of hypertension continue treat and monitor Left side weakness. Chronic left arm pain We will check MRI C-spine to rule out any acute process Will check MRI brain to rule out any acute process. Continue aspirin for secondary stroke prevention. Patient may benefit from EMG nerve conduction studies to rule out any cervical radiculopathy. Hyperlipidemia continue medical Management. HA SWIFT MD Feb 01, 2017 17:26
--- NOTE | 2017-02-01 19:05 | RAD ---
PROCEDURE MRI OF THE HEAD WITHOUT CONTRAST MR OF THE CERVICAL SPINE WITHOUT CONTRAST HISTORY LEFT ARM NUMBNESS, SLURRED SPEECH TECHNIQUE MULTIPLANAR MULTI SEQUENCE IMAGES WERE OBTAINED. POSTCONTRAST IMAGES WERE PERFORMED THROUGH THE HEAD FOLLOWING INJECTION OF GADOLINIUM CONTRAST. COMPARISON SEPTEMBER 25, 2016 MR HEAD FINDINGS HEAD: THERE ARE FEW AREAS OF INCREASED SIGNAL INTENSITY IN THE DEEP WHITE MATTER ON FLAIR AND T2 IMAGES. THESE ARE CONSISTENT WITH CHRONIC ISCHEMIC CHANGE AND ARE STABLE SINCE THE PRIOR MR. THERE IS NO EVIDENCE OF ACUTE INFARCTION OR HEMORRHAGE. NO MASS LESION IS SEEN. THE VENTRICLES AND SULCI ARE NORMAL IN SIZE FOR THE PATIENT'S AGE. THE BASAL CISTERNS ARE WELL MAINTAINED. THERE IS NO SHIFT OF THE MIDLINE STRUCTURES. THERE IS NORMAL FLOW VOID IN THE MAJOR VENOUS SINUSES. C-SPINE: THE STUDY IS SLIGHTLY COMPROMISED BY MOTION. THE INTERVERTEBRAL DISCS ARE NORMAL IN APPEARANCE; THEY SHOW NO EVIDENCE OF BULGING OR FOCAL HNP. THERE IS NO SIGNIFICANT SPINAL STENOSIS. NO FORAMINAL STENOSIS IS APPRECIATED ON THIS STUDY. THE CERVICAL SPINAL CORD IS NORMAL IN APPEARANCE. BONE MARROW SIGNAL INTENSITY IS NORMAL IMPRESSION 1. MRI OF THE HEAD SHOWS NO ACUTE ABNORMALITY. THERE MILD CHRONIC ISCHEMIC CHANGES IN THE DEEP CEREBRAL WHITE MATTER WHICH HAVE NOT CHANGED SIGNIFICANTLY SINCE THE SEPTEMBER 25, 2016 STUDY. 2. MRI OF THE CERVICAL SPINE SHOWS NO SIGNIFICANT ABNORMALITY. THE STUDY IS SLIGHTLY COMPROMISED BY MOTION. Electronically signed by: Freda Burnett (Feb 01, 2017 19:03:14)
[2017-02-01 19:24] VITALS: BP 115/60
--- NOTE | 2017-02-01 19:31 | PDOC ---
Provider Note Provider Note vascular Pt anxious to go home tonight still notes persistent left shoulder pain Pt has a known left subclavian stenosis and proximal left CCA occlusion Her shoulder discomfort is not related to vascular disease Ok for d/c home from vascular standpoint. F/U with me in the offfice in 1 month KINA CHAWLA MD Feb 01, 2017 19:31
== END 2017-02-01 21:00 | disposition home or self-care (01) | DRG 300 ==
LOC: ER 23:00 → 2 NORTH 02-01 00:20
PROVIDERS: ADMIT Family Medicine; ATTEND Family Medicine
DX: I70.8 Atherosclerosis of other arteries (principal); J96.10 Chronic respiratory failure, unspecified whether with hypoxia or hypercapnia; E78.5 Hyperlipidemia, unspecified; F17.210 Nicotine dependence, cigarettes, uncomplicated; G89.29 Other chronic pain; I10 Essential (primary) hypertension; I73.9 Peripheral vascular disease, unspecified; J44.9 Chronic obstructive pulmonary disease, unspecified; K21.9 Gastro-esophageal reflux disease without esophagitis; G62.9 Polyneuropathy, unspecified; M19.90 Unspecified osteoarthritis, unspecified site; M79.602 Pain in left arm; M79.642 Pain in left hand; R73.9 Hyperglycemia, unspecified; Z88.0 Allergy status to penicillin; Z79.899 Other long term (current) drug therapy
CPT/HCPCS: 36415; 70450; 70551; 71010; 71275; 72141; 80048; 81001; 84484; 85027; 93005; 94640; J7030; J7620; 99285-25

== ENCOUNTER → 2018-02-17 | Outpatient (CLI) | payer MEDICARE, MEDICAID | END | disposition home or self-care (01) | LOC: RT 09:08 | DX: G47.33 Obstructive sleep apnea (adult) (pediatric) (principal) | CPT/HCPCS: G0399 ==

== ENCOUNTER → 2018-03-25 | Outpatient (CLI) | payer MEDICARE ==
[2018-03-25] MEDS: IOHEXOL 300 MG/ML 100ML VIAL. IV (11:45)
== END | disposition home or self-care (01) ==
LOC: CT 11:10
DX: K22.2 Esophageal obstruction (principal); J43.9 Emphysema, unspecified; D71 Functional disorders of polymorphonuclear neutrophils; I10 Essential (primary) hypertension; E78.00 Pure hypercholesterolemia, unspecified
CPT/HCPCS: 70492; Q9967

== ENCOUNTER → 2018-03-31 | Outpatient (CLI) | payer MEDICARE | END | disposition home or self-care (01) | LOC: RT 18:42 | DX: G47.33 Obstructive sleep apnea (adult) (pediatric) (principal); E78.5 Hyperlipidemia, unspecified; I10 Essential (primary) hypertension | CPT/HCPCS: 95811 ==

== ENCOUNTER → 2018-05-20 | Outpatient (CLI) | payer MEDICARE | END | disposition home or self-care (01) | LOC: US 15:13 | DX: R60.0 Localized edema (principal) | CPT/HCPCS: 93970 ==

== ENCOUNTER → 2018-07-22 | Outpatient (CLI) | payer MEDICARE ==
[2018-03-12 15:00] VITALS: BP 155/64
[~2018-07-22] MED LIST changes: +ASPI-630 PO; -ASPI81TA2 PO; +BUDE0.25 NEB; +DILT120C80 PO; +DILT180C2 PO; +IPRA3AMP29 NEB; +LACT1CAP19 PO; +PROAIR HFA8.5 GM INH; +Pantoprazole PO
--- NOTE | 2018-07-22 15:32 | RAD ---
Chest radiograph 07/22/2018 12:00 AM INDICATION: Dyspnea COMPARISON: March 10, 2018 TECHNIQUE: Frontal and lateral views of the chest are provided. FINDINGS: The cardiomediastinal silhouette is within normal limits. There is no pulmonary vascular congestion. There is no pneumothorax. There is pulmonary emphysema. There is patchy density in the left lower lobe, not definitively seen on the lateral view. This may represent a pulmonary infiltrate. There is trace right pleural effusion. No significant osseous abnormality is identified. IMPRESSION: COPD changes with left lower lobe pulmonary opacity which may represent pulmonary infiltrate in the appropriate clinical setting. Short-term follow-up radiograph may be of benefit to ensure resolution. Trace right pleural effusion. Electronically signed by: Dian Sinha MD (07/22/2018 3:29 PM) [id number]
== END | disposition home or self-care (01) ==
LOC: RAD 14:26
PROVIDERS: ATTEND Internal Medicine Critical Care Medicine
DX: J43.8 Other emphysema (principal); I10 Essential (primary) hypertension; K21.9 Gastro-esophageal reflux disease without esophagitis; Z88.0 Allergy status to penicillin; E78.00 Pure hypercholesterolemia, unspecified; Z82.49 Family history of ischemic heart disease and other diseases of the circulatory system; Z82.5 Family history of asthma and other chronic lower respiratory diseases
CPT/HCPCS: 71046

== ENCOUNTER → 2018-08-03 | Outpatient (CLI) | payer MEDICARE ==
[2018-03-12 15:00] VITALS: BP 155/64
--- NOTE | 2018-08-03 17:54 | RAD ---
CT scan of the chest without contrast 08/03/2018 CLINICAL HISTORY: Lung nodule. TECHNIQUE: Unenhanced, contiguous, 5 mm axial sections were obtained through the chest and upper abdomen. One or more of the following individualized dose reduction techniques were utilized for this study: 1. Automated exposure control. 2. Adjustment of the mA and/or kV according to patient size. 3. Use of iterative reconstruction technique. FINDINGS: Comparison study is dated 03/10/2018. Atherosclerotic calcification of the thoracic aorta and its branches is seen. The thoracic aorta is tortuous but tapers normally. Small likely reactive mediastinal lymph nodes are again seen. A 3 mm calcified granuloma is seen involving the left upper lobe. Mild emphysematous changes are seen involving both lungs. Areas of scarring are seen involving both upper lobes. Subsegmental atelectasis is seen involving the right middle lobe. Dependent subsegmental atelectasis is seen involving both lower lobes. No area of consolidation is seen. No pneumothorax or pleural effusion is noted. A small area of subsegmental atelectasis is seen involving the lingula. The opacities seen involving the right middle lobe and both lower lobes on the previous examination have largely resolved. The 6 mm nodular opacity involving the left lower lobe has resolved. It likely represented an area of subsegmental atelectasis. No new pulmonary nodule seen. Images through the upper abdomen demonstrate atherosclerotic calcification of the abdominal aorta and its branches. The osseous structures are unchanged. IMPRESSION: The 6 mm nodular opacity seen on the previous examination has resolved. No new pulmonary nodule is seen. Electronically signed by: Marciano Dietrich MD (08/03/2018 5:51 PM) [id number]
== END | disposition home or self-care (01) ==
LOC: CT 12:59
PROVIDERS: ATTEND Internal Medicine Critical Care Medicine
DX: J98.11 Atelectasis (principal); I70.0 Atherosclerosis of aorta; J84.10 Pulmonary fibrosis, unspecified; E78.5 Hyperlipidemia, unspecified; J44.9 Chronic obstructive pulmonary disease, unspecified; K21.9 Gastro-esophageal reflux disease without esophagitis; E78.00 Pure hypercholesterolemia, unspecified; Z88.0 Allergy status to penicillin; Z82.49 Family history of ischemic heart disease and other diseases of the circulatory system; Z82.5 Family history of asthma and other chronic lower respiratory diseases; Z83.3 Family history of diabetes mellitus
CPT/HCPCS: 71250

== ENCOUNTER 2018-08-28 06:13 | Inpatient (IN) | payer MEDICARE ==
[~2018-08-28] VITALS: Ht 160 cm; Wt 67.6 kg
[2018-08-28] VITALS (12 sets, daily range): BP systolic 97–127; BP diastolic 51–61
[~2018-08-28 06:13] MED LIST changes: +HEPARIN SODIUM 5,000 UNIT in IV RINGERS,LACTATED 500ML 500 ML IRR ONE; +LIDOCAINE 1% PF 30ML 48 ML, SODIUM BICARBONATE VIAL 12 MEQ in TOTAL VOLUME SYRINGE 60 ML ID ONE; +PROTAMINE 50 MG/5 ML VIAL. IV ONE; +SURGICEL FIBRILLAR 1X2 EACH. ONE; +VANCOMYCIN 1GM IVPB FOR OMNI 250 ML IV PRN
[2018-08-28] MEDS ORDERED: ONDANSETRON PF 4 MG/2 ML VIAL. IV PRN ×2 (07:00→08:00)
[2018-08-28] MEDS ORDERED: IV RINGERS,LACTATED 1000ML 1,000 ML IV SCH (07:00)
[2018-08-28] MEDS ORDERED: LIDOCAINE 1% PF 2 ML VIAL. ID PRN (07:00)
[2018-08-28] MEDS ORDERED: HYDROmorphone 2 MG/ML VIAL IV PRN (07:00)
[2018-08-28] MEDS ORDERED: fentaNYL PF VIAL 100 MCG/2 ML VIAL IV PRN ×4 (07:00→14:00)
[2018-08-28] MEDS ORDERED: MORPHINE SULFATE 2 MG/ML VIAL. IV PRN ×3 (07:00→14:00)
[2018-08-28] MEDS ORDERED: PROCHLORPERAZINE 10 MG/2 ML VIAL. IV PRN ×2 (07:00→08:00)
[2018-08-28] MEDS ORDERED: fentaNYL PF VIAL 100 MCG/2 ML VIAL ONE ×3 (07:05→12:15)
[2018-08-28] MEDS ORDERED: MIDAZOLAM HCL/PF 2 MG/2 ML VIAL. ONE (07:05)
[2018-08-28] MEDS ORDERED: HEPARIN for IV BOLUS 10,000 UNIT/10 ML VIAL. ONE (07:08)
[2018-08-28] MEDS ORDERED: LIDOCAINE 1% Multi-Dose 20 ML VIAL. ONE (07:11)
[2018-08-28] MEDS ORDERED: ROPIVacaine 0.5% PF 20 ML VIAL. ONE (07:12)
[2018-08-28 07:15] LABS: BASO % 1 % (0-3); EOS # 0.1 x10^3/uL (0.0-0.7); EOS % 1 % (0-3); HEMATOCRIT 44.5 % (36.0-47.0); HEMOGLOBIN 15.4 g/dL (12.0-15.5); LYMPH # 1.7 x10^3/uL (1.0-4.8); LYMPH % 24 % (24-48); MEAN CORPUSCULAR HEMOGLOBIN 32 pg (25-35); MEAN CORPUSCULAR HGB CONC 35 g/dL (31-37); MEAN CORPUSCULAR VOLUME 91 fL (79-100); MONO # 0.6 x10^3/uL (0.0-1.1); MONO % 9 % (0-9); NEUT # 4.7 x10^3uL (1.8-7.7); NEUT % 66 % (31-73); PLATELET COUNT 256 x10^3/uL (140-400); RED CELL DISTRIBUTION WIDTH 13.2 % (11.5-14.5); WHITE BLOOD COUNT 7.1 x10^3/uL (4.0-11.0)
[2018-08-28 07:26] LABS: PROTHROMBIN TIME PATIENT 12.6 SEC (11.7-14.0)
[2018-08-28 07:26] LABS: CALCIUM 9.7 mg/dL (8.5-10.1); CREATININE 0.7 mg/dL (0.6-1.0); GFR 85.4; POTASSIUM 3.8 mmol/L (3.5-5.1)
[2018-08-28] MEDS ORDERED: IPRATRPIUM/ALBUTEROL 0.5/2.5MG 3 ML NEBU. ONE (07:29)
[2018-08-28] MEDS ORDERED: IPRATRPIUM/ALBUTEROL 0.5/2.5MG 3 ML NEBU. NEB ONE ×2 (07:30→11:00)
[2018-08-28] MEDS ORDERED: LIDOCAINE 2% PF 2ML VIAL. ONE (07:37)
[2018-08-28] MEDS ORDERED: BUPIVACAINE 0.25% 50 ML VIAL. ONE (07:48)
[2018-08-28] MEDS ORDERED: LABETALOL 20 MG/4 ML DISP.SYRIN. IVP PRN (08:00)
[2018-08-28] MEDS ORDERED: SENNOSIDES/DOCUSATE 8.6/50MG TABLET. PO PRN (08:00)
[2018-08-28] MEDS ORDERED: oxyCODONE/APAP 5/325 1 TAB TABLET PO PRN ×2 (08:00)
[2018-08-28] MEDS ORDERED: 0.9 % SODIUM CHLORIDE 10 ML DISP.SYRIN. IV PRN (08:00)
[2018-08-28] MEDS: IPRATRPIUM/ALBUTEROL 0.5/2.5MG 3 ML NEBU. NEB SCH ×4 (08:00→19:43)
[2018-08-28] MEDS ORDERED: NITROGLYCERIN PREMIX 250 ML IV ONE (08:05)
[2018-08-28] MEDS ORDERED: ROCURONIUM 50 MG/5 ML VIAL. ONE ×2 (08:06→09:55)
[2018-08-28] MEDS ORDERED: LIDOCAINE 2% PF Vial for OR 5 ML VIAL. ONE (08:06)
[2018-08-28] MEDS ORDERED: PROPOFOL 20 ML IV ONE (08:06)
[2018-08-28] MEDS ORDERED: PHENYLEPHRINE 10 MG/ML VIAL. ONE (08:10)
--- NOTE | 2018-08-28 08:11 | HP ---
ADMIT DATE: 08/28/2018 CHIEF COMPLAINT: Recurrent critical, symptomatic, left carotid artery stenosis. HISTORY OF PRESENT ILLNESS: This is a 57-year-old female with severe peripheral vascular disease and cerebrovascular disease. The patient has a known proximal left common carotid artery occlusion and a left subclavian artery stenosis. In 2007, the patient underwent a right carotid to left carotid bifurcation bypass graft with left carotid endarterectomy for critical symptomatic carotid artery stenosis. She has been followed with regular carotid Duplex imaging studies and the imaging studies have shown progressive stenosis at the graft arterial anastomosis on the left. Surgical intervention has been postponed because of intercurrent severe underlying pulmonary disease. Earlier this year, she was admitted with pneumonia and respiratory failure, required ventilator support and that has slowly improved. She has had a chronic productive cough, which also has improved, but most recently, she has begun to experience intermittent episodes of expressive aphasia and right-sided weakness. Because of this, it is felt that she has now developed a critical recurrent, symptomatic, left carotid bifurcation stenosis. She is admitted at this time for redo intervention with revision of her carotid-carotid bypass graft and left carotid endarterectomy. The planned operative procedure, its risks, complications, and alternative therapies, have all been reviewed with the patient. She understands and agrees to proceed as outlined. She is followed by Dr. Milligan for her underlying lung disease. She does have a history of chronic tobacco use, which she has tried to quit, but has been unsuccessful, still smoking about a pack a day. PAST MEDICAL HISTORY: Significant for cerebrovascular disease as outlined. She has underlying hyperlipidemia, hypertension, and chronic obstructive pulmonary disease, as well as peripheral vascular disease. PAST SURGICAL HISTORY: Her surgeries include carotid-carotid bypass graft. She has had esophageal dilatation and she has had peripheral arterial studies performed. CURRENT MEDICATIONS: Include aspirin 81 mg daily, amlodipine 5 mg daily for blood pressure control, and [place] as needed for pain. ALLERGIES: She has allergies to PENICILLIN. SOCIAL HISTORY: No history of alcohol consumption. No other medication and no other drug use. REVIEW OF SYSTEMS: As noted. She does have the intermittent right arm weakness and tingling as well as expressive aphasia. No history of vision loss. She does note occasional palpitations. She notes bilateral lower extremity swelling, which has improved since her recent hospitalization. PHYSICAL EXAMINATION: GENERAL: She has a healed neck incisions both on the right and the left. HEENT: She has a left carotid bruit. NECK: Supple. CARDIAC: Regular rate and rhythm. No murmur. EXTREMITIES: 2+ radial pulse on the right, absent radial pulse on the left, 2+ femoral pulses bilaterally. Absent popliteal pulses, absent pedal pulses. No skin breakdown or ulceration is noted. LUNGS: Breath sounds are distant. She has prolonged expiratory phase and some end expiratory wheezing. ABDOMEN: Soft, no palpable aneurysm. NEUROLOGY: Intact motor examination. Intact sensory examination. Speech is fluent. IMPRESSION: Critical symptomatic recurrent carotid artery stenosis status post carotid-carotid bypass graft, on the left. Plan is for left carotid bifurcation exploration, revision of the carotid-carotid bypass graft and redo carotid endarterectomy. The planned procedure, risks, complications, and alternatives have all been reviewed with the patient. She understands and agrees to proceed as outlined. KINA CHAWLA MD DR: RANDY/louis JOB#: [id number] / [id number]
[2018-08-28] MEDS ORDERED: GLYCOPYRROLATE 1 MG/5 ML VIAL. ONE (08:58)
[2018-08-28] MEDS ORDERED: NEOSTIGMINE METHYLSULFATE 5 MG/5 ML SYRINGE. ONE (09:15)
[2018-08-28] MEDS ORDERED: VANCOMYCIN 1GM IVPB FOR OMNI 250 ML IV ONE (10:00)
--- NOTE | 2018-08-28 11:04 | PDOC ---
BRIEF OPERATIVE NOTE Pre-Op Diagnosis Recurrent critical left carotid artery stenosis, symptomatic Post-Op Diagnosis same Procedure Performed Redo left carotid endarterectomy with revision of carotid bypass using 7mm gortex graft Surgeon Dr. Singh Educational Therapy Teacher Tiara Sanchez,ARMAND Anesthesia Type: General Blood Loss 200cc Specimens Obtained discarded Findings 80% left carotid artery stenosis Complications none Operative Note see dictated note [facility] Aug 28, 2018 11:04
[2018-08-28 11:24] LABS: BASE EXCESS ABG 0 mmol/L (-3-3); HCO3 ABG 36 mmol/L (21-28); PO2 ABG 108 mmHg (65-108); SAT O2 ABG 96 % (92-99)
--- NOTE | 2018-08-28 11:52 | RAD ---
PORTABLE CHEST 1V dated 08/28/2018 11:13 AM. Comparison: 07/22/2018 Clinical Indication: Post op, pt not waking up, low 02 Sats. Findings: Single upright portable exam performed. Heart and mediastinal contours are stable. There are some prominent interstitial markings, mildly increased from prior study. No consolidation or pleural effusion. No pneumothorax. Impression: Mild diffuse interstitial changes, somewhat more prominent from prior exam. This could be related to low-grade edema or atypical infection. Electronically signed by: Jose Luis Slade MD (08/28/2018 11:49 AM) [facility]
[2018-08-28] MEDS ORDERED: ALBUTEROL SULFATE 2.5 MG/3 ML NEBU. NEB PRN (12:00)
[2018-08-28] MEDS ORDERED: SUCCINYLCHOLINE 200 MG/10 ML VIAL. ONE (12:00)
[2018-08-28] MEDS ORDERED: PROPOFOL 50 ML IV ONE (12:15)
[2018-08-28] MEDS ORDERED: SEVOFLURANE 61 TO 120 MINUTES. IH ONE (12:35)
[2018-08-28] MEDS ORDERED: PROPOFOL 100 ML IV PRN (13:00)
[2018-08-28 13:19] LABS: BASE EXCESS ABG -2 mmol/L (-3-3); HCO3 ABG 24 mmol/L (21-28); PO2 ABG 169 mmHg (65-108); SAT O2 ABG 99 % (92-99)
[2018-08-28 13:22] LABS: FIO2 ABG 60; PCO2 ABG 142 mmHg (35-46)
[2018-08-28 13:23] LABS: PCO2 ABG 48 mmHg (35-46)
[2018-08-28 13:24] LABS: FIO2 ABG 60
[2018-08-28] MEDS: IV RINGERS,LACTATED 1000ML 1,000 ML IV SCH (13:33)
--- NOTE | 2018-08-28 13:37 | CONS ---
DATE OF CONSULTATION: ATTENDING PHYSICIAN: Dr. Singh. REASON FOR CONSULTATION: Respiratory failure. HISTORY OF PRESENT ILLNESS: The patient is a 58-year-old female who has history of suspected severe COPD with chronic hypercapnia. She has a history of smoking since age 11. The patient also has history of obstructive sleep apnea. She has history of peripheral vascular disease. She was admitted for an elective critical left carotid artery stenosis and underwent redo left carotid endarterectomy with revision of the carotid bypass. The patient was extubated and at that time, I was called in the recovery room to assess her respiratory status as she was not responsive and struggling to breathe. An arterial blood gases obtained stat showed a pH of 7.02 with a pCO2 of 141 and a pO2 was above 100. At that time, I spoke with Dr. Singh and also with Anesthesia for stat reintubation. The patient now is being moved to the ICU and is currently being intubated. She was initially on AC of 30, I will reduce the rate to 24, tidal volume is 500. FiO2 is at 100%. Her saturation is 100%. Her blood pressure is above 100 systolic. Chest x-ray, prior to intubation, showed slightly prominent vascular markings. Endotracheal tube has been placed and another chest x-ray has been ordered. Review of records revealed long history of tobacco use. PAST MEDICAL HISTORY: History of suspected severe COPD with chronic hypercapnia. Uses oxygen at night time. History of mild sleep apnea for which CPAP was prescribed. I am not sure whether she is using it. History of esophageal dilatation. History of gastroesophageal reflux disease. She has Schatzki ring, hypertension, hyperlipidemia and peripheral arterial disease. PAST SURGICAL HISTORY: Esophageal dilatation, left carotid endarterectomy and angioplasty to the right iliac artery. MEDICATIONS: Reviewed, as listed in the MRAD. ALLERGIES: PENICILLIN. REVIEW OF SYSTEMS: Unable to obtain from the patient as she is on the ventilator. SOCIAL HISTORY: Smoker since age 11. PHYSICAL EXAMINATION: VITAL SIGNS: Reviewed. Blood pressure in the one teens. Pulse ox is 99%. HEENT: Sclerae nonicteric. NECK: Supple. LUNGS: Diminished breath sounds bilaterally, but no wheezing. CARDIOVASCULAR: Regular rate. ABDOMEN: Soft, nontender. EXTREMITIES: With trace pitting edema. LABORATORY DATA: Reviewed. White cell count 7.1, hemoglobin 15.4. BUN and creatinine 5 and 0.7. IMPRESSION: 1. Expected postop respiratory failure in a patient who has a severe chronic obstructive pulmonary disease with chronic hypercapnia ( FEV1 0.62 27% Predicted) and underwent redo left carotid endarterectomy with revision of the carotid bypass and post-extubation, developed worsening dyspnea and hypercapnia with a pCO2 up to 140, likely contributed by underlying severity of lung disease and effect of anesthetic agents. 2. Suspected severe chronic obstructive pulmonary disease with chronic hypercapnia. 3. Peripheral vascular disease, status post redo left carotid endarterectomy with revision of carotid bypass. 4. Mild congestive heart failure on initial chest x-ray. We will follow one post-intubation. Blood pressure is marginal. We will hold off on diuresis at present. RECOMMENDATION: 1. Continue with present assist control mode. Follow ABGs and make necessary adjustments. 2. Add bronchodilators. 3. DVT prophylaxis. 4. Stress ulcer prophylaxis. 5. Follow blood pressure closely. 6. We will use propofol for sedation as long as blood pressures remain stable. 7. Once hypercapnia is compensated, we will consider CPAP trial in the next 24 hours. 8. Stress ulcer prophylaxis. 9. Discussed with RN and RT and discussed with Dr. Singh and anesthesiologist. Critical care time 39 minutes. HA ALLISON MD DR: JUAN CARLOS/louis JOB#: [id number] / [id number] IVY
[2018-08-28] MEDS: ACETAMINOPHEN 325 MG TABLET. PO SCH ×2 (14:00→21:20)
[2018-08-28] MEDS ORDERED: MORPHINE SULFATE 4 MG/ML VIAL. IV PRN (14:00)
--- NOTE | 2018-08-28 15:26 | OP ---
DATE OF SURGERY: 08/28/2018 PREOPERATIVE DIAGNOSIS: Symptomatic critical and recurrent carotid artery stenosis on the left, 10-year status post right carotid to left carotid artery [place] bypass graft. POSTOPERATIVE DIAGNOSIS: Symptomatic critical and recurrent carotid artery stenosis on the left, 10-year status post right carotid to left carotid artery [place] bypass graft. PROCEDURES PERFORMED: Redo left carotid endarterectomy with revision of carotid graft to the arterial anastomosis. SURGEON: Guevara Chawla M.D. DIRECTOR EMERGENCY: Karina Wong, certified nurse practitioner. ANESTHESIA: General. INDICATIONS: This is a 58-year-old female with severe peripheral vascular disease, had multiple previous interventions performed and the previously noted carotid bypass graft in 2007. She has been followed with recurrent carotid artery stenosis, both at the proximal graft segment from the base of the right carotid artery, which is about 50% and at the anastomosis to the left carotid bifurcation, which is an 80% carotid artery stenosis, which has progressed over the two years since her last arteriogram. In addition, more recently, the patient has had left hemispheric TIAs with expressive aphasia and occasional numbness and tingling of the right arm. Patient's surgical intervention was delayed because of severe and recurrent pulmonary disease. She has recently been admitted and placed on the ventilator support for pneumonia as an exacerbation of her chronic obstructive pulmonary disease. The patient does continue to smoke a pack a day. DESCRIPTION OF PROCEDURE: The patient was given general anesthetic. She was prepped and draped in a sterile fashion. The previous incision was opened longitudinally. Soft tissues were divided with electrocautery. A segment of the common facial vein was entered and this was controlled with a 5-0 Prolene suture. The proximal cross carotid artery bypass graft was isolated, dissected free from surrounding tissues and surrounded with umbilical tape. The origin of the internal and external carotid artery beyond the diseased segment was exposed, isolated and doubly surrounded with vessel loops. The patient received 5000 units of intravenous heparin. The proximal cross carotid bypass graft was occluded. There was no residual pulse in the internal carotid artery. It was felt that at least attempted shunt insertion should be pursued. The distal internal carotid artery was occluded with a small spring bulldog. The carotid arterial anastomosis was taken down with the findings of irregular thrombus both old and new at the carotid graft anastomosis. There was intimal hyperplasia extending into the [place] graft and the [place] graft was transected. A 7 mm Propaten graft was sewn end-to-end to the cross artery bypass graft with a running HS-7 Prolene suture. A 10 mm [place] shunt was passed through the graft into the common carotid artery and secured with Rumel tourniquets. The shunt was then passed into the distal internal carotid artery after the debris had been removed from the carotid bifurcation and blood flow was instituted through the shunt into the internal carotid artery. A small amount of residual plaque was removed. There was an association with severe old and new thrombus. The graft was trimmed and essentially a functional end-to-end anastomosis was completed with HS-7 Prolene suture. Prior to completion of the anastomosis, the shunt was removed. The distal internal carotid artery was backbled and the graft was flushed, suture line was completed. There was disruption of the posterior suture line looks like the suture had broken and a new HS-7 Prolene sutures placed at this location some both proximally and distally and then secured to the remnants of the previous HS-7 Prolene. Prior to completion of the closure, the internal carotid artery was backbled. The graft was flushed again. The suture line was completed. Blood flow was instituted into the external carotid system and finally into the distal internal carotid artery. A handheld Doppler was utilized to insonate Doppler flow signals in the internal and external carotid artery and they were normal for each of these vessels. A small amount of fibrillar Surgicel was placed in the wound. A 7 mm flat Antonio-Saez drain was placed proximally. The platysma was closed with a running suture of 2-0 Vicryl and skin was approximated with a running 3-0 Vicryl placed in subcuticular tissues. Steri-Strips and sterile dressings were applied. The patient was awakened and moved to the recovery room in satisfactory stable condition. Her mental status had not returned to baseline. She was still asleep, did not respond to commands and complete neurologic assessment is not able to performed until the patient awakens further from her anesthetic. GUEVARA CHAWLA MD DR: RANDY/louis JOB#: [id number] / [id number]
[2018-08-28 15:40] LABS: BASE EXCESS COOX 1 mmol/L (-3-3); HCO3 COOX 27 mmol/L (21-28); METHEMOGLOBIN 0.4 % (0.0-1.9); OXYHEMOGLOBIN 96.5 %; PO2 COOX 114 mmHg (65-108); SAT O2 COOX 98 % (92-99)
[2018-08-28 15:45] LABS: PCO2 COOX 49 mmHg (35-46)
--- NOTE | 2018-08-28 15:46 | RAD ---
Portable chest, 08/28/2018: HISTORY: Check tube placements Comparison is made to a study from earlier the same day. The patient is rotated to the right. The ET tube tip lies 6-7 cm above the ubaldo. An NG tube extends into the stomach. The heart size and pulmonary vascularity are normal. No pulmonary infiltrate is seen. There is no evidence of pleural fluid. IMPRESSION: 1. Satisfactory ET tube and NG tube positions. 2. No acute cardiopulmonary abnormality is detected. Electronically signed by: Benito Lorenzo MD (08/28/2018 3:43 PM) [facility]
[2018-08-28] MEDS: PROPOFOL 100 ML IV PRN (17:09)
[2018-08-28] MEDS: BUDESONIDE 0.5 MG/2 ML NEBU. NEB SCH (19:43)
[2018-08-29] VITALS (23 sets, daily range): BP systolic 119–165; BP diastolic 52–66
[2018-08-29] MEDS: PROPOFOL 100 ML IV PRN ×2 (00:06→06:09)
[2018-08-29] MEDS: IV RINGERS,LACTATED 1000ML 1,000 ML IV SCH ×3 (02:05→22:00)
[2018-08-29] MEDS: ACETAMINOPHEN 325 MG TABLET. PO SCH ×3 (06:00→22:29)
[2018-08-29] MEDS ORDERED: ELECTROLYTE (NON-ICU) PROTOCOL MC PRN (06:00)
[2018-08-29 06:22] LABS: HEMATOCRIT 33.9 % (36.0-47.0); HEMOGLOBIN 11.6 g/dL (12.0-15.5); RED BLOOD COUNT 3.72 x10^6/uL (3.50-5.40); RED CELL DISTRIBUTION WIDTH 13.2 % (11.5-14.5); WHITE BLOOD COUNT 11.9 x10^3/uL (4.0-11.0)
[2018-08-29 06:37] LABS: CALCIUM 8.7 mg/dL (8.5-10.1); CREATININE 0.6 mg/dL (0.6-1.0); POTASSIUM 4.3 mmol/L (3.5-5.1)
--- NOTE | 2018-08-29 07:29 | PDOC ---
SUBJECTIVE Subjective intubated, awake and responsive OBJECTIVE Objective minimal left neck swelling responds to commands moves all 4 extremities to command equal strength throughout Vital Signs Vital Signs Date Time Temp Pulse Resp B/P (MAP) Pulse Ox O2 Delivery O2 Flow Rate FiO2 08/29/18 06:00 74 16 125/52 (76) 97 Ventilator 08/29/18 05:45 95 Ventilator 08/29/18 05:00 72 16 126/53 (77) 97 Ventilator 08/29/18 04:00 98.7 74 16 119/55 (76) 97 Ventilator 98.7 08/29/18 04:00 Mechanical Ventilator 08/29/18 03:25 95 Ventilator 08/29/18 03:00 74 16 126/58 (80) 96 Ventilator 08/29/18 02:00 78 16 133/62 (85) 96 Ventilator 08/29/18 01:45 95 Ventilator 08/29/18 01:00 90 16 137/64 (88) 95 Ventilator 08/29/18 00:00 99.4 90 16 134/64 (87) 94 Ventilator 99.4 08/29/18 00:00 Mechanical Ventilator 08/28/18 23:45 95 Ventilator 08/28/18 23:00 85 16 116/58 (77) 92 Ventilator 08/28/18 22:00 82 16 108/55 (72) 92 Ventilator 08/28/18 21:15 93 Ventilator 08/28/18 21:00 83 16 101/54 (70) 92 Ventilator 18 20:00 99.2 85 16 107/54 (71) 92 Ventilator 99.2 08/28/18 20:00 Mechanical Ventilator 08/28/18 19:44 93 Ventilator 08/28/18 19:00 82 16 97/52 (67) 94 Ventilator 18 18:04 93 Ventilator 18 17:59 80 16 111/57 (75) 93 Ventilator 18 17:00 84 16 104/53 (70) 93 Ventilator 18 16:00 98.6 77 16 120/60 (80) 95 Ventilator 98.6 08/28/18 16:00 Mechanical Ventilator 18 15:32 96 Ventilator 18 15:00 72 24 127/61 (83) 97 Ventilator 18 14:45 18 97 Ventilator 18 14:17 18 98 Ventilator 08/28/18 14:00 70 24 121/57 (78) 97 Ventilator 08/28/18 13:32 98 Ventilator 08/28/18 13:08 98 Ventilator 08/28/18 13:00 75 24 124/58 (80) 100 Ventilator 08/28/18 12:30 Mechanical Ventilator 08/28/18 12:25 126/51 (76) 08/28/18 12:25 97.8 65 24 112/55 (74) 100 Ventilator 97.8 08/28/18 12:22 97.4 70 30 104/44 98 Ventilator 97.4 08/28/18 12:07 97.4 71 30 106/46 96 Ventilator 97.4 08/28/18 12:05 96 Ventilator 08/28/18 11:52 97.4 94 30 130/44 100 Ventilator 97.4 08/28/18 11:37 90 28 130/44 95 Simple Mask 10 08/28/18 11:22 97.4 84 24 132/46 97 Aerosol Mask 10 97.4 08/28/18 11:10 90 Simple Mask 08/28/18 11:07 94 28 126/44 92 Aerosol Mask 10 08/28/18 10:52 Mask 10 08/28/18 10:52 97.4 94 26 126/44 92 Simple Mask 10 97.4 I & O Intake and Output 08/29/18 07:00 Intake Total 2496.74 ml Output Total 1410 ml Balance 1086.74 ml Intake IV Total 2496.74 ml Output Urine Total 1000 ml Drainage Total 10 ml Estimated Blood Loss 400 ml ASSESSMENT/PLAN Assessment/Plan doing well wean vent today COMMENT Lab Laboratory Tests Test 08/28/18 11:15 08/28/18 13:10 08/28/18 15:30 08/29/18 06:00 O2 Saturation 96 % (92-99) 99 % (92-99) 98 % (92-99) Arterial Blood pH 7.02 (7.35-7.45) 7.32 (7.35-7.45) 7.37 (7.35-7.45) Arterial Blood pCO2 at Patient Temp 142 mmHg (35-46) 48 mmHg (35-46) 49 mmHg (35-46) Arterial Blood pO2 at Patient Temp 108 mmHg (65-108) 169 mmHg (65-108) 114 mmHg (65-108) Arterial Blood HCO3 36 mmol/L (21-28) 24 mmol/L (21-28) 27 mmol/L (21-28) Arterial Blood Base Excess 0 mmol/L (-3-3) -2 mmol/L (-3-3) 1 mmol/L (-3-3) FiO2 60 60 40 Oxyhemoglobin 96.5 % Methemoglobin 0.4 % (0.0-1.9) Carbon Monoxide, Quantitative 1.1 % (0.0-1.9) White Blood Count 11.9 x10^3/uL (4.0-11.0) Red Blood Count 3.72 x10^6/uL (3.50-5.40) Hemoglobin 11.6 g/dL (12.0-15.5) Hematocrit 33.9 % (36.0-47.0) Mean Corpuscular Volume 91 fL (79-100) Mean Corpuscular Hemoglobin 31 pg (25-35) Mean Corpuscular Hemoglobin Concent 34 g/dL (31-37) Red Cell Distribution Width 13.2 % (11.5-14.5) Platelet Count 228 x10^3/uL (140-400) Sodium Level 138 mmol/L (136-145) Potassium Level 4.3 mmol/L (3.5-5.1) Chloride Level 103 mmol/L (98-107) Carbon Dioxide Level 31 mmol/L (21-32) Anion Gap 4 (6-14) Blood Urea Nitrogen 9 mg/dL (7-20) Creatinine 0.6 mg/dL (0.6-1.0) Estimated GFR (Cockcroft-Gault) 102.0 Glucose Level 111 mg/dL (70-99) Calcium Level 8.7 mg/dL (8.5-10.1) KINA CHAWLA MD Aug 29, 2018 07:29
[2018-08-29] MEDS ORDERED: PANTOPRAZOLE 40 MG TABLET.DR. PO SCH (07:30)
[2018-08-29] MEDS: BUDESONIDE 0.5 MG/2 ML NEBU. NEB SCH ×2 (08:11→19:47)
[2018-08-29] MEDS: IPRATRPIUM/ALBUTEROL 0.5/2.5MG 3 ML NEBU. NEB SCH ×4 (08:11→19:47)
[2018-08-29 08:19] LABS: BASE EXCESS ABG 4 mmol/L (-3-3); HCO3 ABG 28 mmol/L (21-28); PCO2 ABG 42 mmHg (35-46); PO2 ABG 73 mmHg (65-108); SAT O2 ABG 95 % (92-99)
[2018-08-29 08:21] LABS: FIO2 ABG 45
[2018-08-29] MEDS: ASPIRIN CHEWABLE 81 MG TABLET. PO SCH (08:36)
[2018-08-29 10:13] LABS: BASE EXCESS ABG 5 mmol/L (-3-3); FIO2 ABG 45; HCO3 ABG 31 mmol/L (21-28); PCO2 ABG 48 mmHg (35-46); PO2 ABG 92 mmHg (65-108); SAT O2 ABG 97 % (92-99)
[2018-08-29] MEDS ORDERED: MAGNESIUM SULFATE 1GM 100 ML IV ONE (11:30)
--- NOTE | 2018-08-29 11:31 | PDOC ---
PULMONARY PROGRESS NOTES Subjective doing well on CPAP trial fully awake Vitals Vital Signs Date Time Temp Pulse Resp B/P (MAP) Pulse Ox O2 Delivery O2 Flow Rate FiO2 08/29/18 10:00 76 16 164/64 (97) 97 Ventilator 08/29/18 07:00 98.9 98.9 08/28/18 11:37 10 General: Alert, No acute distress Lungs: Clear Cardiovascular: S1 Abdomen: Soft Extremities: No Edema Skin: Warm Labs Laboratory Tests Test 08/28/18 06:34 08/28/18 07:08 08/28/18 11:15 08/28/18 13:10 White Blood Count 7.1 x10^3/uL (4.0-11.0) Red Blood Count 4.90 x10^6/uL (3.50-5.40) Hemoglobin 15.4 g/dL (12.0-15.5) Hematocrit 44.5 % (36.0-47.0) Mean Corpuscular Volume 91 fL (79-100) Mean Corpuscular Hemoglobin 32 pg (25-35) Mean Corpuscular Hemoglobin Concent 35 g/dL (31-37) Red Cell Distribution Width 13.2 % (11.5-14.5) Platelet Count 256 x10^3/uL (140-400) Neutrophils (%) (Auto) 66 % (31-73) Lymphocytes (%) (Auto) 24 % (24-48) Monocytes (%) (Auto) 9 % (0-9) Eosinophils (%) (Auto) 1 % (0-3) Basophils (%) (Auto) 1 % (0-3) Neutrophils # (Auto) 4.7 x10^3uL (1.8-7.7) Lymphocytes # (Auto) 1.7 x10^3/uL (1.0-4.8) Monocytes # (Auto) 0.6 x10^3/uL (0.0-1.1) Eosinophils # (Auto) 0.1 x10^3/uL (0.0-0.7) Basophils # (Auto) 0.0 x10^3/uL (0.0-0.2) Sodium Level 141 mmol/L (136-145) Potassium Level 3.8 mmol/L (3.5-5.1) Chloride Level 103 mmol/L (98-107) Carbon Dioxide Level 32 mmol/L (21-32) Anion Gap 6 (6-14) Blood Urea Nitrogen 5 mg/dL (7-20) Creatinine 0.7 mg/dL (0.6-1.0) Estimated GFR (Cockcroft-Gault) 85.4 Glucose Level 113 mg/dL (70-99) Calcium Level 9.7 mg/dL (8.5-10.1) Prothrombin Time 12.6 SEC (11.7-14.0) Prothromb Time International Ratio 1.0 (0.8-1.1) Activated Partial Thromboplast Time 38 SEC (24-38) O2 Saturation 96 % (92-99) 99 % (92-99) Arterial Blood pH 7.02 (7.35-7.45) 7.32 (7.35-7.45) Arterial Blood pCO2 at Patient Temp 142 mmHg (35-46) 48 mmHg (35-46) Arterial Blood pO2 at Patient Temp 108 mmHg (65-108) 169 mmHg (65-108) Arterial Blood HCO3 36 mmol/L (21-28) 24 mmol/L (21-28) Arterial Blood Base Excess 0 mmol/L (-3-3) -2 mmol/L (-3-3) FiO2 60 60 Test 08/28/18 15:30 08/29/18 06:00 08/29/18 08:15 08/29/18 10:09 O2 Saturation 98 % (92-99) 95 % (92-99) 97 % (92-99) Arterial Blood pH 7.37 (7.35-7.45) 7.44 (7.35-7.45) 7.42 (7.35-7.45) Arterial Blood pCO2 at Patient Temp 49 mmHg (35-46) 42 mmHg (35-46) 48 mmHg (35-46) Arterial Blood pO2 at Patient Temp 114 mmHg (65-108) 73 mmHg (65-108) 92 mmHg (65-108) Arterial Blood HCO3 27 mmol/L (21-28) 28 mmol/L (21-28) 31 mmol/L (21-28) Arterial Blood Base Excess 1 mmol/L (-3-3) 4 mmol/L (-3-3) 5 mmol/L (-3-3) Oxyhemoglobin 96.5 % Methemoglobin 0.4 % (0.0-1.9) Carbon Monoxide, Quantitative 1.1 % (0.0-1.9) FiO2 40 45 45 White Blood Count 11.9 x10^3/uL (4.0-11.0) Red Blood Count 3.72 x10^6/uL (3.50-5.40) Hemoglobin 11.6 g/dL (12.0-15.5) Hematocrit 33.9 % (36.0-47.0) Mean Corpuscular Volume 91 fL (79-100) Mean Corpuscular Hemoglobin 31 pg (25-35) Mean Corpuscular Hemoglobin Concent 34 g/dL (31-37) Red Cell Distribution Width 13.2 % (11.5-14.5) Platelet Count 228 x10^3/uL (140-400) Sodium Level 138 mmol/L (136-145) Potassium Level 4.3 mmol/L (3.5-5.1) Chloride Level 103 mmol/L (98-107) Carbon Dioxide Level 31 mmol/L (21-32) Anion Gap 4 (6-14) Blood Urea Nitrogen 9 mg/dL (7-20) Creatinine 0.6 mg/dL (0.6-1.0) Estimated GFR (Cockcroft-Gault) 102.0 Glucose Level 111 mg/dL (70-99) Calcium Level 8.7 mg/dL (8.5-10.1) Laboratory Tests Test 08/28/18 13:10 08/28/18 15:30 08/29/18 06:00 08/29/18 08:15 O2 Saturation 99 % (92-99) 98 % (92-99) 95 % (92-99) Arterial Blood pH 7.32 (7.35-7.45) 7.37 (7.35-7.45) 7.44 (7.35-7.45) Arterial Blood pCO2 at Patient Temp 48 mmHg (35-46) 49 mmHg (35-46) 42 mmHg (35-46) Arterial Blood pO2 at Patient Temp 169 mmHg (65-108) 114 mmHg (65-108) 73 mmHg (65-108) Arterial Blood HCO3 24 mmol/L (21-28) 27 mmol/L (21-28) 28 mmol/L (21-28) Arterial Blood Base Excess -2 mmol/L (-3-3) 1 mmol/L (-3-3) 4 mmol/L (-3-3) FiO2 60 40 45 Oxyhemoglobin 96.5 % Methemoglobin 0.4 % (0.0-1.9) Carbon Monoxide, Quantitative 1.1 % (0.0-1.9) White Blood Count 11.9 x10^3/uL (4.0-11.0) Red Blood Count 3.72 x10^6/uL (3.50-5.40) Hemoglobin 11.6 g/dL (12.0-15.5) Hematocrit 33.9 % (36.0-47.0) Mean Corpuscular Volume 91 fL (79-100) Mean Corpuscular Hemoglobin 31 pg (25-35) Mean Corpuscular Hemoglobin Concent 34 g/dL (31-37) Red Cell Distribution Width 13.2 % (11.5-14.5) Platelet Count 228 x10^3/uL (140-400) Sodium Level 138 mmol/L (136-145) Potassium Level 4.3 mmol/L (3.5-5.1) Chloride Level 103 mmol/L (98-107) Carbon Dioxide Level 31 mmol/L (21-32) Anion Gap 4 (6-14) Blood Urea Nitrogen 9 mg/dL (7-20) Creatinine 0.6 mg/dL (0.6-1.0) Estimated GFR (Cockcroft-Gault) 102.0 Glucose Level 111 mg/dL (70-99) Calcium Level 8.7 mg/dL (8.5-10.1) Test 08/29/18 10:09 O2 Saturation 97 % (92-99) Arterial Blood pH 7.42 (7.35-7.45) Arterial Blood pCO2 at Patient Temp 48 mmHg (35-46) Arterial Blood pO2 at Patient Temp 92 mmHg (65-108) Arterial Blood HCO3 31 mmol/L (21-28) Arterial Blood Base Excess 5 mmol/L (-3-3) FiO2 45 Medications Active Scripts Medications Dose Route/Sig Max Daily Dose Days Date Category [Pantoprazole] 40 MG Tablet.dr 40 Mg PO DAILYAC 30 03/12/18 Rx Cardizem Cd (Diltiazem Hcl) 180 Mg Cap.er.24h 1 Cap PO DAILY 03/12/18 Rx Budesonide 0.25 Mg/2 Ml Ampul.neb 1 Vial NEB BID 03/12/18 Rx Culturelle (Lactobacillus Rhamnosus Gg) 1 Each Cap.sprink 1 Cap PO BID 14 03/12/18 Rx Duoneb 0.5-3(2.5) Mg/3 Ml (Albuterol/Ipratropium) 3 Ml Ampul.neb 3 Ml NEB RTQID 30 03/12/18 Rx Proair Hfa Inhaler (Albuterol Sulfate) 8.5 Gm Hfa.aer.ad 2 Puff INH PRN Q6HRS PRN 30 03/12/18 Rx Aspirin 81 Mg Tab.chew 1 Tab PO DAILY 05/06/16 Reported Impression . 1. Expected postop respiratory failure in a patient who has severe chronic obstructive pulmonary disease with chronic hypercapnia ( FEV1 0.62 27% Predicted) and underwent redo left carotid endarterectomy with revision of the carotid bypass and post-extubation, developed worsening dyspnea and hypercapnia with a pCO2 up to 140, contributed by underlying severity of lung disease and effect of anesthetic agents. 2. severe chronic obstructive pulmonary disease with chronic hypercapnia. 3. Peripheral vascular disease, status post redo left carotid endarterectomy with revision of carotid bypass. 4. Mild congestive heart failure on initial chest x-ray. resolved on f/u Plan . 1. Doing well on CPAP trial. ABG excellent. will proceed with extubation 2. bronchodilators. 3. DVT prophylaxis. 4. Stress ulcer prophylaxis. 5. Follow blood pressure closely. 6.. Discussed with RN and RT HA ALLISON MD Aug 29, 2018 11:31
[2018-08-29] MEDS: ENOXAPARIN 40 MG/0.4 ML SYRINGE. SQ SCH (12:40)
[2018-08-30] VITALS (16 sets, daily range): BP systolic 92–159; BP diastolic 42–75
[2018-08-30] MEDS: ACETAMINOPHEN 325 MG TABLET. PO SCH ×3 (05:49→21:35)
[2018-08-30] MEDS: IV RINGERS,LACTATED 1000ML 1,000 ML IV SCH ×2 (06:49→09:41)
[2018-08-30] MEDS: BUDESONIDE 0.5 MG/2 ML NEBU. NEB SCH ×2 (08:05→20:36)
[2018-08-30] MEDS: IPRATRPIUM/ALBUTEROL 0.5/2.5MG 3 ML NEBU. NEB SCH ×4 (08:06→20:36)
[2018-08-30] MEDS: PANTOPRAZOLE IV PUSH 40 MG VIAL. IVP SCH (08:07)
[2018-08-30] MEDS: ASPIRIN CHEWABLE 81 MG TABLET. PO SCH (08:35)
--- NOTE | 2018-08-30 10:00 | PDOC ---
SUBJECTIVE Subjective no complaints OBJECTIVE Vital Signs Vital Signs Date Time Temp Pulse Resp B/P (MAP) Pulse Ox O2 Delivery O2 Flow Rate FiO2 08/30/18 08:35 90 156/75 08/30/18 08:06 90 Nasal Cannula 4.0 08/30/18 08:00 Nasal Cannula 3.0 08/30/18 07:00 82 22 152/73 (99) 92 Nasal Cannula 4.0 08/30/18 06:00 72 18 159/73 (101) 91 Nasal Cannula 4.0 08/30/18 05:00 68 27 138/68 (91) 96 Nasal Cannula 4.0 08/30/18 04:00 99.4 75 15 147/75 (99) 94 Nasal Cannula 4.0 99.4 08/30/18 04:00 Nasal Cannula 4.0 08/30/18 03:00 68 29 133/60 (84) 96 Nasal Cannula 4.0 08/30/18 02:00 88 17 142/69 (93) 92 Nasal Cannula 4.0 08/30/18 01:00 111 14 142/67 (92) 92 Nasal Cannula 4.0 08/30/18 00:00 99.5 84 16 116/62 (80) 92 Nasal Cannula 4.0 99.5 08/29/18 23:59 Nasal Cannula 4.0 08/29/18 23:00 75 16 165/66 (99) 94 Nasal Cannula 4.0 08/29/18 22:00 80 19 151/61 (91) 92 Nasal Cannula 4.0 08/29/18 21:00 86 19 140/64 (89) 92 Nasal Cannula 4.0 08/29/18 20:00 Nasal Cannula 4.0 08/29/18 20:00 99.2 86 20 126/56 (79) 92 Nasal Cannula 4.0 99.2 08/29/18 19:47 92 Nasal Cannula 3.0 08/29/18 19:00 78 16 138/61 (86) 91 Nasal Cannula 4.0 08/29/18 18:00 82 18 132/61 (84) 92 Nasal Cannula 4.0 08/29/18 17:31 92 18 134/61 (85) 92 Nasal Cannula 4.0 08/29/18 16:20 93 Nasal Cannula 3.0 08/29/18 16:00 Nasal Cannula 4.0 10/20/18 15:00 82 18 138/56 (83) 90 Nasal Cannula 4.0 08/29/18 14:00 91 16 145/64 (91) 88 Nasal Cannula 4.0 08/29/18 13:00 78 16 134/52 (79) 93 Nasal Cannula 4.0 08/29/18 12:01 92 Nasal Cannula 4.0 08/29/18 12:00 86 16 158/66 (96) 92 Nasal Cannula 4.0 08/29/18 12:00 Nasal Cannula 4.0 08/29/18 11:00 93 20 149/66 (93) 89 Nasal Cannula 4.0 08/29/18 10:35 92 Nasal Cannula 4.0 08/29/18 10:00 76 16 164/64 (97) 97 Ventilator I & O Intake and Output 08/30/18 07:00 Intake Total 1845 ml Output Total 445 ml Balance 1400 ml Intake IV Total 1845 ml Output Urine Total 415 ml Drainage Total 30 ml # Voids 1 PHYSICAL EXAM Physical Exam neck incision OK MEDINA out neuro intact ASSESSMENT/PLAN Assessment/Plan doing well OK for discharge from vascular standpoint COMMENT Lab Laboratory Tests Test 08/29/18 10:09 O2 Saturation 97 % (92-99) Arterial Blood pH 7.42 (7.35-7.45) Arterial Blood pCO2 at Patient Temp 48 mmHg (35-46) Arterial Blood pO2 at Patient Temp 92 mmHg (65-108) Arterial Blood HCO3 31 mmol/L (21-28) Arterial Blood Base Excess 5 mmol/L (-3-3) FiO2 45 KINA CHAWLA MD Aug 30, 2018 10:00
[2018-08-30] MEDS: ENOXAPARIN 40 MG/0.4 ML SYRINGE. SQ SCH (11:45)
--- NOTE | 2018-08-30 13:57 | PDOC ---
PULMONARY PROGRESS NOTES Subjective extubated 08/30 doing well Vitals Vital Signs Date Time Temp Pulse Resp B/P (MAP) Pulse Ox O2 Delivery O2 Flow Rate FiO2 08/30/18 12:25 90 Nasal Cannula 3.0 08/30/18 11:00 97 22 99/49 (66) 08/30/18 08:00 99.0 99.0 General: Alert, No acute distress Lungs: Clear Cardiovascular: S1 Abdomen: Soft Extremities: No Edema Skin: Warm Labs Laboratory Tests Test 08/28/18 15:30 08/29/18 06:00 08/29/18 08:15 08/29/18 10:09 O2 Saturation 98 % (92-99) 95 % (92-99) 97 % (92-99) Arterial Blood pH 7.37 (7.35-7.45) 7.44 (7.35-7.45) 7.42 (7.35-7.45) Arterial Blood pCO2 at Patient Temp 49 mmHg (35-46) 42 mmHg (35-46) 48 mmHg (35-46) Arterial Blood pO2 at Patient Temp 114 mmHg (65-108) 73 mmHg (65-108) 92 mmHg (65-108) Arterial Blood HCO3 27 mmol/L (21-28) 28 mmol/L (21-28) 31 mmol/L (21-28) Arterial Blood Base Excess 1 mmol/L (-3-3) 4 mmol/L (-3-3) 5 mmol/L (-3-3) Oxyhemoglobin 96.5 % Methemoglobin 0.4 % (0.0-1.9) Carbon Monoxide, Quantitative 1.1 % (0.0-1.9) FiO2 40 45 45 White Blood Count 11.9 x10^3/uL (4.0-11.0) Red Blood Count 3.72 x10^6/uL (3.50-5.40) Hemoglobin 11.6 g/dL (12.0-15.5) Hematocrit 33.9 % (36.0-47.0) Mean Corpuscular Volume 91 fL (79-100) Mean Corpuscular Hemoglobin 31 pg (25-35) Mean Corpuscular Hemoglobin Concent 34 g/dL (31-37) Red Cell Distribution Width 13.2 % (11.5-14.5) Platelet Count 228 x10^3/uL (140-400) Sodium Level 138 mmol/L (136-145) Potassium Level 4.3 mmol/L (3.5-5.1) Chloride Level 103 mmol/L (98-107) Carbon Dioxide Level 31 mmol/L (21-32) Anion Gap 4 (6-14) Blood Urea Nitrogen 9 mg/dL (7-20) Creatinine 0.6 mg/dL (0.6-1.0) Estimated GFR (Cockcroft-Gault) 102.0 Glucose Level 111 mg/dL (70-99) Calcium Level 8.7 mg/dL (8.5-10.1) Medications Active Scripts Medications Dose Route/Sig Max Daily Dose Days Date Category [Pantoprazole] 40 MG Tablet.dr 40 Mg PO DAILYAC 30 03/12/18 Rx Cardizem Cd (Diltiazem Hcl) 180 Mg Cap.er.24h 1 Cap PO DAILY 03/12/18 Rx Budesonide 0.25 Mg/2 Ml Ampul.neb 1 Vial NEB BID 03/12/18 Rx Culturelle (Lactobacillus Rhamnosus Gg) 1 Each Cap.sprink 1 Cap PO BID 14 03/12/18 Rx Duoneb 0.5-3(2.5) Mg/3 Ml (Albuterol/Ipratropium) 3 Ml Ampul.neb 3 Ml NEB RTQID 30 03/12/18 Rx Proair Hfa Inhaler (Albuterol Sulfate) 8.5 Gm Hfa.aer.ad 2 Puff INH PRN Q6HRS PRN 30 03/12/18 Rx Aspirin 81 Mg Tab.chew 1 Tab PO DAILY 05/06/16 Reported Impression . 1. Expected postop respiratory failure in a patient who has severe chronic obstructive pulmonary disease with chronic hypercapnia ( FEV1 0.62 27% Predicted) and underwent redo left carotid endarterectomy with revision of the carotid bypass and post-extubation, developed worsening dyspnea and hypercapnia with a pCO2 up to 140, contributed by underlying severity of lung disease and effect of anesthetic agents. extubated 08/29 2. severe chronic obstructive pulmonary disease with chronic hypercapnia. 3. Peripheral vascular disease, status post redo left carotid endarterectomy with revision of carotid bypass. 4. Mild congestive heart failure on initial chest x-ray. resolved on f/u Plan . 1. Doing well on nasal canula 2. bronchodilators. 3. DVT prophylaxis. 4. Stress ulcer prophylaxis. 5. Oral nutrition 6.. Discussed with funds transfer clerk to floor home in HA Porras MD Aug 30, 2018 13:57
[2018-08-31 03:00] VITALS: BP 127/68
[2018-08-31] MEDS: ACETAMINOPHEN 325 MG TABLET. PO SCH (05:49)
[2018-08-31 07:00] VITALS: BP 147/68
[2018-08-31] MEDS: BUDESONIDE 0.5 MG/2 ML NEBU. NEB SCH (07:34)
[2018-08-31] MEDS: IPRATRPIUM/ALBUTEROL 0.5/2.5MG 3 ML NEBU. NEB SCH ×2 (07:34→11:14)
[2018-08-31] MEDS: ASPIRIN CHEWABLE 81 MG TABLET. PO SCH (08:12)
[2018-08-31] MEDS: PANTOPRAZOLE IV PUSH 40 MG VIAL. IVP SCH (08:12)
[2018-08-31 11:00] VITALS: BP 122/58
--- NOTE | 2018-08-31 12:04 | PDOC ---
PULMONARY PROGRESS NOTES Subjective extubated 08/30 doing well Vitals Vital Signs Date Time Temp Pulse Resp B/P (MAP) Pulse Ox O2 Delivery O2 Flow Rate FiO2 08/31/18 11:16 90 Nasal Cannula 2.0 08/31/18 11:00 98.5 78 18 122/58 (79) 98.5 General: Alert, No acute distress Lungs: Clear Cardiovascular: S1 Abdomen: Soft Extremities: No Edema Skin: Warm Medications Active Scripts Medications Dose Route/Sig Max Daily Dose Days Date Category [Pantoprazole] 40 MG Tablet.dr 40 Mg PO DAILYAC 30 03/12/18 Rx Cardizem Cd (Diltiazem Hcl) 180 Mg Cap.er.24h 1 Cap PO DAILY 03/12/18 Rx Budesonide 0.25 Mg/2 Ml Ampul.neb 1 Vial NEB BID 03/12/18 Rx Culturelle (Lactobacillus Rhamnosus Gg) 1 Each Cap.sprink 1 Cap PO BID 14 03/12/18 Rx Duoneb 0.5-3(2.5) Mg/3 Ml (Albuterol/Ipratropium) 3 Ml Ampul.neb 3 Ml NEB RTQID 30 03/12/18 Rx Proair Hfa Inhaler (Albuterol Sulfate) 8.5 Gm Hfa.aer.ad 2 Puff INH PRN Q6HRS PRN 30 03/12/18 Rx Aspirin 81 Mg Tab.chew 1 Tab PO DAILY 05/06/16 Reported Impression . 1. Expected postop respiratory failure in a patient who has severe chronic obstructive pulmonary disease with chronic hypercapnia ( FEV1 0.62 27% Predicted) and underwent redo left carotid endarterectomy with revision of the carotid bypass and post-extubation, developed worsening dyspnea and hypercapnia with a pCO2 up to 140, contributed by underlying severity of lung disease and effect of anesthetic agents. extubated 08/29 2. severe chronic obstructive pulmonary disease with chronic hypercapnia. 3. Peripheral vascular disease, status post redo left carotid endarterectomy with revision of carotid bypass. 4. Mild congestive heart failure on initial chest x-ray. resolved on f/u Plan . 1. Doing well on nasal canula 2. bronchodilators. 3. DVT prophylaxis. 4. Stress ulcer prophylaxis. 5. Oral nutrition 6.. Discussed with MAMI barahona with co home today HA ALLISON MD Aug 31, 2018 12:03
--- NOTE | 2018-08-31 12:59 | DISCH ---
DISCHARGE INSTRUCTIONS Condition on Discharge Condition on Discharge: Stable Activity After Discharge Activity Instructions for Disc: No restrictions, Activity as tolerated Bathing Instructions: Shower-keep dressing dry, No Tub Bath until see Lifting Instructions after Dis: Do not lift >10 pounds Exercise Instruction after Dis: Progress as tolerated Driving Instructions after Dis: Do not drive today Weight Bearing Status after Di: No restrictions, As tolerated Diet after Discharge Diet after Discharge: Cardiac Diet Texture: Regular Liquid Texture: Thin Liquid Swallowing Supervision: None needed Wound Incision Care Wound/Incision Care: Ice to area for comfort, Keep wound/cast CDI, May get incision wet Other wound/incision instructi: Leave steri-strip on until it falls off. Contacting the [facility] after DC Call your doctor for: If your condition worsens (worsening neck swelling, difficulty swallowing or difficulty breathing) Follow-Up Follow Up With: Dr. Singh on 09/16/18 at 9:10am at [facility]. Treatment/Equipment after DC Adaptive Equipment Issued: None NGOZI QUEEN Aug 31, 2018 12:59
--- NOTE | 2018-08-31 13:20 | PDOC3 ---
Discharge Summary Visit Information Date of Admission: Aug 28, 2018 Date of Discharge: Aug 31, 2018 Admitting Diagnosis: Critical symptomatic recurrent carotid artery stenosis Final Diagnosis 1. Critical symptomatic recurrent carotid artery stenosis 2. severe COPD Brief Hospital Course Allergies Allergies Coded Allergies Type Severity Reaction Last Updated Verified Penicillins Allergy Severe Anaphylaxis 08/26/18 Yes Vital Signs Vital Signs Date Time Temp Pulse Resp B/P (MAP) Pulse Ox O2 Delivery O2 Flow Rate FiO2 08/31/18 11:16 90 Nasal Cannula 2.0 08/31/18 11:00 98.5 78 18 122/58 (79) 98.5 Brief Hospital Course Ms. Hernandez is a 58 old female who was admitted following a redo left carotid endarterectomy on 08/28/18.She tolerated the procedure well, however with her severe COPD with chronic hypercapnia, she experienced postop respiratory failure with worsening dyspnea and hypercapnia and was reintubated. Dr. Milligan was asked to assist in post operative respiratory management. She was treated with O2 via nasal cannula, bronchodilators, DVT prophylaxis and stress ulcer prophylaxis. She was then extubated on 08/29/18, after this point her hospital course was without complications No new symptoms developed post operatively. Discharge instructions were given to the patient regarding wound care and symptoms to notify physician. She will be discharged to home and is to follow up with Dr. Singh in 2-3 weeks. Discharge Information Condition at Discharge: Improved, Stable Disposition/Orders: D/C to Home Scheduled Aspirin (Aspirin) 81 Mg Tab.chew, 1 TAB PO DAILY, #30 Ref 3 (Reported) Entered as Reported by: Simin Brewer on 05/06/16 1144 Last Taken: Unknown Dose on 08/26/18 Last Action: Continued on 08/28/18 0754 by TIARA SANCHEZ Budesonide (Budesonide) 0.25 Mg/2 Ml Ampul.neb, 1 VIAL NEB BID, #60 Prescribed by: DOUGLAS FITZGERALD on 03/12/18 1132 Last Action: Converted on 08/28/18 075 by TIARA SANCHEZ Diltiazem Hcl (Cardizem Cd) 180 Mg Cap.er.24h, 1 CAP PO DAILY, #30 Ref 5 Prescribed by: DOUGLAS FITZGERALD on 03/12/18 1132 Last Taken: Unknown Dose on 08/28/18 0500 Last Action: Converted on 08/28 by TIARA SANCHEZ Ipratropium/Albuterol Sulfate (Duoneb 0.5-3(2.5) Mg/3 Ml) 3 Ml Ampul.neb, 3 ML NEB RTQID for 30 Days, #120 Ref 4 Prescribed by: DOUGLAS FITZGERALD on 03/12/181131 Last Action: Continued on 08/28/18753 by TIARA SANCHEZ Lactobacillus Rhamnosus Gg (Culturelle) 1 Each Cap.sprink, 1 CAP PO BID for 14 Days, #28 Ref 0 Prescribed by: DOUGLAS FITZGERALD on 03/12/181131 Last Action: HELD on 08/28/18753 by TIARA SANCHEZ [Pantoprazole] 40 MG TABLET.DR, 40 MG PO DAILYAC for 30 Days, Ref 3 Prescribed by: DOUGLAS FITZGERALD on 03/12/181137 Last Taken: Unknown Dose on 08/28/18 0500 Last Action: Converted on 08/28 by TIARA SANCHEZ Scheduled PRN Albuterol Sulfate (Proair Hfa Inhaler) 8.5 Gm Hfa.aer.ad, 2 PUFF INH PRN Q6HRS PRN for SHORTNESS OF BREATH for 30 Days, #1 Ref 0 Prescribed by: DOUGLAS FITZGERALD on 03/12/181131 Last Taken: Unknown Dose on 08/28/18499 Last Action: Converted on 08/28 by TIARA SANCHEZ Patient Instructions Patient Instructions See Discharge instructions. NGOZI QUEEN Aug 31, 2018 13:20
== END 2018-08-31 14:00 | disposition home or self-care (01) | DRG 252 ==
LOC: OPSVCIP 06:13 → 1 WEST ICU 12:48 → 4 NORTH 08-30 14:18
PROC: 03CL0ZZ Extirpation of Matter from Left Internal Carotid Artery, Open Approach (ICD-10-PCS; 2018-08-28)
PROC: 03UJ0JZ Supplement Left Common Carotid Artery with Synthetic Substitute, Open Approach (ICD-10-PCS; 2018-08-28)
PROC: 03UL0JZ Supplement Left Internal Carotid Artery with Synthetic Substitute, Open Approach (ICD-10-PCS; 2018-08-28)
PROC: 5A1935Z Respiratory Ventilation, Less than 24 Consecutive Hours (ICD-10-PCS; 2018-08-28)
PROC: 0BH17EZ Insertion of Endotracheal Airway into Trachea, Via Natural or Artificial Opening (ICD-10-PCS; 2018-08-28)
PROC: 03CJ0Z6 (ICD-10-PCS; principal; 2018-08-28 07:30)
DX: T82.858A Stenosis of other vascular prosthetic devices, implants and grafts, initial encounter (principal); J96.00 Acute respiratory failure, unspecified whether with hypoxia or hypercapnia; R47.01 Aphasia; I65.22 Occlusion and stenosis of left carotid artery; E78.5 Hyperlipidemia, unspecified; F17.210 Nicotine dependence, cigarettes, uncomplicated; G47.33 Obstructive sleep apnea (adult) (pediatric); I11.0 Hypertensive heart disease with heart failure; I50.9 Heart failure, unspecified; Z86.73 Personal history of transient ischemic attack (TIA), and cerebral infarction without residual deficits; K21.9 Gastro-esophageal reflux disease without esophagitis; I73.9 Peripheral vascular disease, unspecified; Z79.82 Long term (current) use of aspirin; Z79.899 Other long term (current) drug therapy; Z99.81 Dependence on supplemental oxygen
CPT/HCPCS: 36415; 36600; 71045; 80048; 82805; 85025; 85027; 85610; 85730; 87641; 94002; 94003; 94640; 94760; A7015; C1768; C9113; J0330; J1644; J1650; J2001; J2250; J2704; J2710; J2795; J3010; J3370; J3490; J7120; J7620; J7626

== ENCOUNTER → 2018-12-24 | Outpatient (CLI) | payer MEDICARE ==
[~2018-12-24] MED LIST changes: +ALBU2.5V8 INH; -DILT120C80 PO; +DILT120C85 PO; -HEPARIN SODIUM 5,000 UNIT in IV RINGERS,LACTATED 500ML 500 ML IRR ONE; -LIDOCAINE 1% PF 30ML 48 ML, SODIUM BICARBONATE VIAL 12 MEQ in TOTAL VOLUME SYRINGE 60 ML ID ONE; -PROAIR HFA8.5 GM INH; -PROTAMINE 50 MG/5 ML VIAL. IV ONE; -SURGICEL FIBRILLAR 1X2 EACH. ONE; -VANCOMYCIN 1GM IVPB FOR OMNI 250 ML IV PRN
--- NOTE | 2018-12-24 10:29 | KCIC ---
EXAM: Upper gastrointestinal series exam. HISTORY: Dyspepsia. TECHNIQUE: A wire harness design engineer image of the abdomen was obtained prior to oral administration of barium contrast of thin and thick consistencies. Effervescent crystals were administered for dedicated air contrast views. 11 fluoroscopic spot images were obtained for total fluoroscopy time of 1 minute and 36 seconds. COMPARISON: 03/11/2018. FINDINGS: The wire harness design engineer image of the abdomen demonstrates gas and stool within the colon. There are nonspecific air-filled loops of small bowel within the abdomen. There are multiple calcifications overlying the renal shadows, likely due to vascular calcifications demonstrated on a prior CT. There are also calcific lesion overlying the left upper quadrant due to splenic granulomas. There are surgical clips within the left upper quadrant. There are suspected healed inferior left rib fractures. There are bilateral iliac arterial stents. The images obtained during the oral administration of contrast demonstrate normal swallowing function. There is no evidence of aspiration or penetration. The esophagus is normal in caliber. No esophageal mucosal lesion is seen. There is normal transit of contrast into the stomach. There is no hiatal hernia. No convincing gastric mucosal lesion is seen. There is normal emptying of contrast into the small bowel. No gastroesophageal reflux is seen. IMPRESSION: Relatively unremarkable upper gastrointestinal series exam. Electronically signed by: Tara Montalvo MD (12/24/2018 10:26 AM) [id number]
== END | disposition home or self-care (01) ==
LOC: KCIC 08:06
PROVIDERS: ATTEND Family Medicine
DX: D73.89 Other diseases of spleen (principal); N28.89 Other specified disorders of kidney and ureter
CPT/HCPCS: 74241

== ENCOUNTER → 2020-01-10 | Outpatient (CLI) | payer MEDICARE, OTHER ==
[~2020-01-10] MED LIST changes: -DILT120C85 PO; +DILT120C99 PO; -PANT40TA3 PO; +PANT40TA77 PO
--- NOTE | 2020-01-10 16:05 | KCIC ---
MRI Brain without contrast History: Headaches, history of hypertension, dizziness, blurred vision Technique: Multiplanar, multisequential noncontrast MR imaging was performed of the brain. Comparison: February 01, 2017 Findings: There is no evidence of recent infarct or cytotoxic edema. The ventricles, sulci, and cisterns are within normal limits in size and configuration. There is no significant midline shift, intraaxial mass effect, or focal abnormal extra-axial fluid collection. There are again scattered multiple small foci of T2 and FLAIR hyperintense signal abnormality of the supratentorial parenchyma bilaterally, overall mild degree of signal abnormality present. There are some new small foci such as of the bilateral herron radiata. There is also [id number] T2 and FLAIR hyperintense signal abnormality of the susie, slightly increased in interval. There is preservation of the major intracranial flow-voids at the skull base. There is patchy minimal fluid and thickening of the right mastoid air cells as seen previously.The cerebellar tonsils are normal in location. There is no significant abnormality of the pineal gland or pituitary gland. Paranasal sinuses are mostly aerated, negligible patchy left ethmoid air cell mucosal thickening, small size of the sphenoid sinus as seen previously. Frontal sinus is also not significantly pneumatized. Somewhat heterogeneous signal of the marrow of the clivus is similar. Impression: 1. There is no evidence of recent infarct or new intracranial mass effect. There is again scattered multifocal nonspecific T2 and FLAIR hyperintense signal abnormality of the supratentorial parenchyma bilaterally and susie somewhat progressed since 2017 exam, overall mild degree of signal abnormality present. Nonspecific findings may be due to chronic microvascular ischemic disease especially given history of hypertension. Electronically signed by: Eduardo Montenegro MD (01/10/2020 4:02 PM) [id number]
== END ==
LOC: KCIC MRI 13:07
PROVIDERS: ATTEND Family Medicine
DX: R94.02 Abnormal brain scan (principal); I10 Essential (primary) hypertension
CPT/HCPCS: 70551

== ENCOUNTER → 2020-01-24 | Outpatient (CLI) | payer MEDICARE, OTHER ==
--- NOTE | 2020-01-24 17:30 | KCIC ---
EXAM: AP, lateral, bilateral oblique, open-mouth odontoid and swimmer's views of the cervical spine DATE: 01/24/2020 12:00 AM CLINICAL HISTORY: Neck pain COMPARISON: None available. FINDINGS: On the lateral view, the cervical spine is imaged from the skull base to superior C6. Vertebral body heights are preserved. Intervertebral disc heights are preserved. No spondylolisthesis. Oblique views do not demonstrate bony foraminal narrowing. Normal predental space. No significant prevertebral soft tissue swelling. Surgical clips in left neck. IMPRESSION: 1. Negative acute fracture or subluxation. Electronically signed by: Ahsan Haq MD (01/24/2020 5:27 PM) [id number]
== END | disposition home or self-care (01) ==
LOC: KCIC 14:29
PROVIDERS: ATTEND Family Medicine
DX: M54.2 Cervicalgia (principal)
CPT/HCPCS: 72050

== ENCOUNTER 2020-05-22 21:06 | Emergency (ER) | payer MEDICARE, OTHER ==
[~2020-05-22] VITALS: Ht 160 cm; Wt 72.0 kg
--- NOTE | 2020-05-22 22:07 | PHYS DOC ---
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 Patient has increased cough with new green sputum production. Patient denies any fevers but states she has had hot and chills. Patient states she has been out of her medications for the last 1 month. She states at home she has been at 60 to 70% on her 2 L. Patient denies any associated chest pain. In the emergency department patient is on 3 L nasal cannula with oxygen saturation of 95%. Review of Systems: Review of Systems: Constitutional: Positive fevers positive chills Eyes: Denies change in visual acuity. [] HENT: Denies nasal congestion or sore throat. [] Respiratory: Positive shortness of breath positive cough Cardiovascular: Denies chest pain or edema. [] GI: Denies abdominal pain, nausea, vomiting, bloody stools or diarrhea. [] : Denies dysuria. [] Musculoskeletal: Denies back pain or joint pain. [] Integument: Denies rash. [] Neurologic: Denies headache, focal weakness or sensory changes. [] Endocrine: Denies polyuria or polydipsia. [] Lymphatic: Denies swollen glands. [] Psychiatric: Denies depression or anxiety. [] Heart Score: Risk Factors: Risk Factors: DM, Current or recent (<one month) smoker, HTN, HLP, family history of CAD, obesity. Risk Scores: Score 0 - 3: 2.5% MACE over next 6 weeks - Discharge Home Score 4 - 6: 20.3% MACE over next 6 weeks - Admit for Clinical Observation Score 7 - 10: 72.7% MACE over next 6 weeks - Early Invasive Strategies Allergies: Allergies: Allergies Coded Allergies Type Severity Reaction Last Updated Verified Penicillins Allergy Severe Anaphylaxis 08/26/18 Yes Physical Exam: PE: Constitutional: Well developed, well nourished, no acute distress, non-toxic appearance. [] HENT: Normocephalic, atraumatic, bilateral external ears normal, oropharynx moist, no oral exudates, nose normal. [] Eyes: PERRLA, EOMI, conjunctiva normal, no discharge. [] Neck: Normal range of motion, no tenderness, supple, no stridor. [] Cardiovascular:Heart rate regular rhythm, no murmur [] Lungs & Thorax: Bilateral breath sounds clear to auscultation [] no respiratory distress Abdomen: Bowel sounds normal, soft, no tenderness, no masses, no pulsatile masses. [] Skin: Warm, dry, no erythema, no rash. [] Back: No tenderness, no CVA tenderness. [] Extremities: No tenderness, no cyanosis, no clubbing, ROM intact, no edema. [] Neurologic: Alert and oriented X 3, normal motor function, normal sensory function, no focal deficits noted. [] Psychologic: Affect normal, judgement normal, mood normal. [] EKG: EKG: EKG 2122 sinus tachycardia rate of [address] ST depression no acute FL [] Radiology/Procedures: Radiology/Procedures: [] Impression: TECHNIQUE: Frontal view of the chest Comparisons: 08/28/2018 FINDINGS: The cardiomediastinal silhouette and pulmonary vessels are within normal limits. The lung and pleural spaces are clear. IMPRESSION: No acute cardiopulmonary process. Electronically signed by: Carmen Diaz MD (05/22/2020 10:37 PM) [id number] Course & Med Decision Making: Course & Med Decision Making Pertinent Labs and Imaging studies reviewed. (See chart for details) [] Patient was evaluated for chief complaint. Work-up consisted of laboratory analysis and radiologic imaging. Results reviewed and discussed with patient. Patient's x-ray without acute abnormalities. Patient's lab work within normal limits. Treatment included Solu-Medrol and DuoNeb. Patient's oxygen saturation 9596% on 3 L. Patient is usually on 2 L. Patient states she has been out of all her COPD medications for the last 1 month. This time I feel patient's vital signs are stable. Will discharge patient home on refill medications. We will also prescribe patient prednisone. Dragon Disclaimer: Dragon Disclaimer: This electronic medical record was generated, in whole or in part, using a voice recognition dictation system. Departure Departure Impression: Primary Impression: COPD exacerbation Disposition: 01 HOME, SELF-CARE Condition: STABLE Referrals: SANJEEV GONCALVES MD (PCP) Patient Instructions: Chronic Obstructive Pulmonary Disease Exacerbation Scripts Ipratropium [place] (ATROVENT HFA) 12.9 Gm Hfa.aer.ad 2 PUFF IH QID, #12.9 GM 5 Refills Prov: MARKO MARIE DO 05/22/20 Albuterol Sulfate (Proair Hfa) 8.5 Gm Hfa.aer.ad 1 PUFF INH PRN Q6HRS PRN for SHORTNESS OF BREATH for 7 Days, #14 INHALER Prov: MARKO MARIE DO 05/22/20 Azithromycin (ZITHROMAX) 250 Mg Tablet 1 PKG PO UD, #6 TAB Prov: MARKO MARIE DO 05/22/20 Prednisone (PREDNISONE) 20 Mg Tablet 1 TAB PO UD for 12 Days, #15 TAB Take 2 tabs days 1,2,3 1.5 tabs days 3,4,5 1 tab days 6,7,8 0.5 tab days 9,10,11 Prov: MARKO MARIE DO 05/22/20 Justicifation of Admission Dx: Justifications for Admission: Justification of Admission Dx: N/A MARKO MARIE DO May 22, 2020 22:07
[2020-05-22] MEDS ORDERED: methylPREDNISolone SOD SUCC PF 125 MG/2 ML VIAL. IV ONE (22:30)
[2020-05-22 22:36] LABS: BASO % 1 % (0-3); EOS # 0.1 x10^3/uL (0.0-0.7); EOS % 1 % (0-3); HEMATOCRIT 52.4 % (36.0-47.0); LYMPH # 1.8 x10^3/uL (1.0-4.8); LYMPH % 17 % (24-48); MEAN CORPUSCULAR HEMOGLOBIN 32 pg (25-35); MEAN CORPUSCULAR HGB CONC 34 g/dL (31-37); MEAN CORPUSCULAR VOLUME 94 fL (79-100); MONO # 0.8 x10^3/uL (0.0-1.1); MONO % 7 % (0-9); NEUT % 74 % (31-73); PLATELET COUNT 230 x10^3/uL (140-400); RED BLOOD COUNT 5.59 x10^6/uL (3.50-5.40); RED CELL DISTRIBUTION WIDTH 13.9 % (11.5-14.5); WHITE BLOOD COUNT 10.7 x10^3/uL (4.0-11.0)
--- NOTE | 2020-05-22 22:39 | RAD ---
Exam: Chest one view INDICATION: Shortness of breath TECHNIQUE: Frontal view of the chest Comparisons: 08/28/2018 FINDINGS: The cardiomediastinal silhouette and pulmonary vessels are within normal limits. The lung and pleural spaces are clear. IMPRESSION: No acute cardiopulmonary process. Electronically signed by: Carmen Diaz MD (05/22/2020 10:37 PM) [id number]
[2020-05-22 22:44] LABS: CALCIUM 9.2 mg/dL (8.5-10.1); CREATININE 0.7 mg/dL (0.6-1.0); GFR 85.1
[2020-05-22] MEDS ORDERED: IPRATRPIUM/ALBUTEROL 0.5/2.5MG 3 ML NEBU. NEB ONE (22:45)
[2020-05-22 22:50] LABS: ALBUMIN 3.5 g/dL (3.4-5.0); ALBUMIN/GLOBULIN RATIO 0.9 (1.0-1.7); TOTAL BILIRUBIN 0.2 mg/dL (0.2-1.0); TOTAL PROTEIN 7.5 g/dL (6.4-8.2)
[2020-05-22] MEDS ORDERED: AZIT250T PO (23:23)
[2020-05-22] MEDS ORDERED: PRED20TA PO (23:23)
[2020-05-22] MEDS ORDERED: ATROVENT HFA12.9 GM IH (23:33)
[2020-05-22] MEDS ORDERED: ALBU2.5V8 INH (23:33)
[2020-05-22 23:53] VITALS: BP 128/75
== END 2020-05-23 00:20 | disposition home or self-care (01) ==
LOC: ER 21:06
DX: J44.1 Chronic obstructive pulmonary disease with (acute) exacerbation (principal); R06.02 Shortness of breath; R05 Cough; R50.9 Fever, unspecified; F17.200 Nicotine dependence, unspecified, uncomplicated; Z88.0 Allergy status to penicillin
CPT/HCPCS: 36415; 71045; 80053; 84484; 85025; 94640; 96374; 99285; J2930

== ENCOUNTER → 2020-08-17 | Outpatient (CLI) | payer MEDICARE, OTHER ==
[~2020-08-17] MED LIST changes: +ATROVENT HFA12.9 GM IH; +AZIT250T PO; +BARIUM SULFATE 40% (APPLE) 148 GM PWD. PO ONE; +PRED20TA PO
--- NOTE | 2020-08-17 12:15 | RAD ---
VIDEO SWALLOW STUDY Reason for Examination: Reason: DYSPGAGIA FT 1.7MIN / Spl. Instructions: 40% BARIUM ORDERED / History: With the patient in the lateral projection, using video observation and recording, the patient was asked to swallow barium liquid, barium impregnated pudding, and chew cracker. No penetration or aspiration. Mild piriform residual with thicker consistencies. Interpretation (personally supervised): Total fluoroscopy time was 1.7 minutes Fluoroscopic spot images: 1 Impression: 1. No evidence of aspiration or penetration. Please refer to speech pathology notes for further details. Electronically signed by: Anton Hammer DO (08/17/2020 12:11 PM) [id number]
== END ==
LOC: RAD 10:30
PROVIDERS: ATTEND Internal Medicine Gastroenterology
DX: R13.10 Dysphagia, unspecified (principal)
CPT/HCPCS: 74230; 92611-GN

== ENCOUNTER 2021-02-16 23:00 | Inpatient (IN) | payer MEDICARE, OTHER ==
[~2021-02-16] VITALS: Ht 160 cm; Wt 59.6 kg
[~2021-02-16 23:00] MED LIST changes: -BARIUM SULFATE 40% (APPLE) 148 GM PWD. PO ONE
[2021-02-16 23:38] LABS: BASO # 0.1 x10^3/uL (0.0-0.2); BASO % 1 % (0-3); EOS # 0.1 x10^3/uL (0.0-0.7); EOS % 1 % (0-3); HEMATOCRIT 46.3 % (36.0-47.0); HEMOGLOBIN 15.5 g/dL (12.0-15.5); LYMPH % 12 % (24-48); MEAN CORPUSCULAR HEMOGLOBIN 33 pg (25-35); MEAN CORPUSCULAR HGB CONC 34 g/dL (31-37); MEAN CORPUSCULAR VOLUME 98 fL (79-100); MONO # 0.7 x10^3/uL (0.0-1.1); MONO % 8 % (0-9); NEUT # 6.9 x10^3/uL (1.8-7.7); NEUT % 79 % (31-73); PLATELET COUNT 197 x10^3/uL (140-400); RED BLOOD COUNT 4.73 x10^6/uL (3.50-5.40); RED CELL DISTRIBUTION WIDTH 13.2 % (11.5-14.5); WHITE BLOOD COUNT 8.8 x10^3/uL (4.0-11.0)
[2021-02-16] MEDS ORDERED: IPRATRPIUM/ALBUTEROL 0.5/2.5MG 3 ML NEBU. NEB ONE (23:45)
[2021-02-16] MEDS ORDERED: DEXAMETHASONE SOD PHOS 4 MG/ML VIAL IVP ONE (23:45)
--- NOTE | 2021-02-16 23:46 | EKG ---
[facility] [address] [place] [address] Test Date: 2021-02-16 Test Time: 23:15:22 Pat Name: ELEAZAR MEDEIROS Department: Room: Gender: F [employer] Agent: : [id number] Requested By: UMBERTO CLEMENT Order Number: [id number] Reading MD: Measurements Intervals [place] Rate: 100 P: 64 WA: 114 QRS: 39 QRSD: 74 T: 99 QT: 316 QTc: 410 Interpretive Statements SINUS RHYTHM LEFT ATRIAL ABNORMALITY T ABNORMALITY IN HIGH LATERAL LEADS ABNORMAL ECG RI6.02 No previous ECG available for comparison
[2021-02-16 23:47] LABS: BLOOD UREA NITROGEN 5 mg/dL (7-20); BUN/CREATININE RATIO 10 (6-20); CALCIUM 9.1 mg/dL (8.5-10.1); CARBON DIOXIDE 45 mmol/L (21-32); CHLORIDE 99 mmol/L (98-107); CREATININE 0.5 mg/dL (0.6-1.0); GLUCOSE 135 mg/dL (70-99); POTASSIUM 4.1 mmol/L (3.5-5.1); SODIUM 140 mmol/L (136-145)
[2021-02-16 23:52] LABS: ALBUMIN 3.6 g/dL (3.4-5.0); ALK PHOS 97 U/L (46-116); ALT (SGPT) 21 U/L (14-59); AST (SGOT) 19 U/L (15-37); MAGNESIUM 2.1 mg/dL (1.8-2.4); TOTAL BILIRUBIN 0.4 mg/dL (0.2-1.0); TOTAL PROTEIN 7.2 g/dL (6.4-8.2)
[2021-02-17] LABS: CREATINE KINASE 24 U/L (26-192)
--- NOTE | 2021-02-17 | PHYS DOC ---
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 Patient does also report some left-sided headache. Denies trauma. Denies fever or chills. Patient reports requiring increased supplemental O2 over the last few days. Patient typically is on 2 to 4 L via nasal cannula at home as well as a CPAP machine at night. Denies known exposure to COVID-19. Denies leg swelling or calf tenderness. Review of Systems: Review of Systems: Constitutional: Denies fever or chills Eyes: Denies redness or eye pain HENT: Denies nasal congestion or sore throat Respiratory: Reports cough and shortness of breath Cardiovascular: Denies chest pain or palpitations GI: Denies abdominal pain, nausea, or vomiting : Denies dysuria or hematuria Musculoskeletal: Denies back pain or joint pain Integument: Denies rash or skin lesions Neurologic: Reports headache; denies focal weakness or sensory changes Complete systems were reviewed and found to be within normal limits, except as documented in this note. Heart Score: C/O Chest Pain: N/A Current Medications: Current Medications Medications (Trade) Dose Ordered Sig/Raymond Start Time Stop Time Status Last Admin Dose Admin Albuterol/ Ipratropium (Duoneb) 3 ml 1X ONCE 02/16/21 23:45 02/16/21 23:46 DC Dexamethasone Sodium Phosphate (Decadron) 10 mg 1X ONCE 02/16/21 23:45 02/16/21 23:46 DC Allergies: Allergies: Allergies Coded Allergies Type Severity Reaction Last Updated Verified Penicillins Allergy Severe Anaphylaxis 08/26/18 Yes Physical Exam: PE: Constitutional: Appears older than stated age, well nourished, ill appearing HENT: Normocephalic, atraumatic Eyes: Conjunctiva normal, no discharge Neck: Normal range of motion, supple Lungs & Thorax: Mild-moderate respiratory distress, equal chest rise and fall, diffuse wheezing Abdomen: Soft, no tenderness Skin: Warm, dry, no erythema, no rash Extremities: No calf tenderness, ROM intact, no edema Neurologic: Alert and oriented X 3, no focal deficits noted Psychologic: Affect normal, judgment normal Current Patient Data: Labs: Laboratory Tests Test 02/16/21 23:15 White Blood Count 8.8 x10^3/uL (4.0-11.0) Red Blood Count 4.73 x10^6/uL (3.50-5.40) Hemoglobin 15.5 g/dL (12.0-15.5) Hematocrit 46.3 % (36.0-47.0) Mean Corpuscular Volume 98 fL (79-100) Mean Corpuscular Hemoglobin 33 pg (25-35) Mean Corpuscular Hemoglobin Concent 34 g/dL (31-37) Red Cell Distribution Width 13.2 % (11.5-14.5) Platelet Count 197 x10^3/uL (140-400) Neutrophils (%) (Auto) 79 % (31-73) H Lymphocytes (%) (Auto) 12 % (24-48) L Monocytes (%) (Auto) 8 % (0-9) Eosinophils (%) (Auto) 1 % (0-3) Basophils (%) (Auto) 1 % (0-3) Neutrophils # (Auto) 6.9 x10^3/uL (1.8-7.7) Lymphocytes # (Auto) 1.0 x10^3/uL (1.0-4.8) Monocytes # (Auto) 0.7 x10^3/uL (0.0-1.1) Eosinophils # (Auto) 0.1 x10^3/uL (0.0-0.7) Basophils # (Auto) 0.1 x10^3/uL (0.0-0.2) Sodium Level 140 mmol/L (136-145) Potassium Level 4.1 mmol/L (3.5-5.1) Chloride Level 99 mmol/L (98-107) Carbon Dioxide Level 45 mmol/L (21-32) H Anion Gap (6-14) Blood Urea Nitrogen 5 mg/dL (7-20) L Creatinine 0.5 mg/dL (0.6-1.0) L Estimated GFR (Cockcroft-Gault) 125.0 BUN/Creatinine Ratio 10 (6-20) Glucose Level 135 mg/dL (70-99) H Calcium Level 9.1 mg/dL (8.5-10.1) Magnesium Level 2.1 mg/dL (1.8-2.4) Total Bilirubin 0.4 mg/dL (0.2-1.0) Aspartate Amino Transferase (AST) 19 U/L (15-37) Alanine Aminotransferase (ALT) 21 U/L (14-59) Alkaline Phosphatase 97 U/L (46-116) Troponin I Quantitative < 0.017 ng/mL (0.000-0.055) Total Protein 7.2 g/dL (6.4-8.2) Albumin 3.6 g/dL (3.4-5.0) Albumin/Globulin Ratio 1.0 (1.0-1.7) Laboratory Tests 02/16/21 23:15 Laboratory Tests 02/16/21 23:15 Vital Signs: Vital Signs Date Time Temp Pulse Resp B/P (MAP) Pulse Ox O2 Delivery O2 Flow Rate FiO2 02/16/21 23:51 96 Nasal Cannula 4.0 02/16/21 23:37 96 189/86 (120) 02/16/21 23:15 32 EKG: EKG: @2315 NSR at 100bpm, NO ST elevation, QRS 74ms, QT/QTc 316/410ms Radiology/Procedures: Radiology/Procedures: PROCEDURE: PORTABLE CHEST 1V XR CHEST 1V History: Reason: dyspnea / Spl. Instructions: / History: Comparison: May 22, 2020 Findings: Mild interstitial thickening. Ill-defined bibasilar opacities. No pleural effusion. No pneumothorax. Surgical clips left upper quadrant. Impression: 1. Mild interstitial thickening, may relate to chronic interstitial changes although superimposed early pulmonary edema or infection is possible. Electronically signed by: Anton Hammer DO (02/17/2021 12:00 AM) [facility] Course & Med Decision Making: Course & Med Decision Making Pertinent Labs and Imaging studies reviewed. (See chart for details) Patient presents with report of progressive shortness of air. History of COPD. Patient noted to be hypoxic on supplemental O2 via nasal cannula. DuoNeb provided. Empiric steroid initiated. EKG stable. Labs obtained and posted to chart. Troponin WNL. D-dimer elevated however after age adjustment with result that "VTE unlikely". ABG obtained with significant CO2 retention. Decision to place patient on BiPAP. Chest x-ray with probable chronic interstitial changes however cannot fully exclude infectious etiology. Repeat ABG with interval improvement. Cannot fully exclude COVID-19. COVID-19 testing pending. Patient requiring admission for further evaluation and treatment. Discussed with Dr. Luu (hospitalist) who is in agreement with admission. Discussed findings and plan with patient and son, who acknowledge understanding and agreement. COVID-19 CRITERIA: The patient was evaluated during the global COVID-19 pandemic, and that diagnosis was suspected/considered upon their initial presentation. Their evaluation, treatment and testing was consistent with cur rent guidelines for patients who present with complaints or symptoms that may be related to COVID-19. Dragon Disclaimer: Dragon Disclaimer: This electronic medical record was generated, in whole or in part, using a voice recognition dictation system. Departure Departure Impression: Primary Impression: COPD exacerbation Additional Impressions: Hypoxia Suspected 2019 novel coronavirus infection Disposition: ADMITTED INPT THIS HOSP Admitting Physician: ESTELLE Betancourt) Condition: STABLE Referrals: SANJEEV GONCALVES MD (PCP) Critical Care Time Critical care time was 30 minutes which includes time at bedside, spent in discussion of patient's care with specialists and/or family members, with interpretation of laboratory and/or radiological studies and is exclusive of procedures. COVID-19 Assessment: COVID-19 Patient Risks: Age 65 or older: No Sign of co-morbidity: Yes Exp to person + for COVID: No Exp to PUI: No Travel from affected area: No Lower respiratory symptoms: Yes Fever: No Other: Yes PPE Use: Full PPE with N95 mask or PAPR: Yes UMBERTO CLEMENT DO Feb 17, 2021 00:00
--- NOTE | 2021-02-17 00:02 | RAD ---
XR CHEST 1V History: Reason: dyspnea / Spl. Instructions: / History: Comparison: May 22, 2020 Findings: Mild interstitial thickening. Ill-defined bibasilar opacities. No pleural effusion. No pneumothorax. Surgical clips left upper quadrant. Impression: 1. Mild interstitial thickening, may relate to chronic interstitial changes although superimposed ea rly pulmonary edema or infection is possible. Electronically signed by: Anton Hammer DO (02/17/2021 12:00 AM) [facility]
[2021-02-17 00:56] LABS: BASE EXCESS ABG 16 mmol/L (-3-3); HCO3 ABG 52 mmol/L (21-28); PO2 ABG 55 mmHg (65-108); SAT O2 ABG 86 % (92-99)
[2021-02-17] MEDS ORDERED: ONDANSETRON PF 4 MG/2 ML VIAL. IV PRN (01:00)
[2021-02-17] MEDS ORDERED: ACETAMINOPHEN 325 MG TABLET. PO PRN ×2 (01:00→09:00)
[2021-02-17] MEDS ORDERED: ALBUTEROL SULFATE 2.5 MG/3 ML NEBU. NEB PRN (01:00)
[2021-02-17] MEDS ORDERED: IPRATRPIUM/ALBUTEROL 0.5/2.5MG 3 ML NEBU. NEB ONE (01:00)
[2021-02-17 01:22] LABS: FIO2 ABG 32; PCO2 ABG 140 mmHg (35-46)
[2021-02-17 02:59] LABS: BASE EXCESS ABG 15 mmol/L (-3-3); HCO3 ABG 48 mmol/L (21-28); PO2 ABG 168 mmHg (65-108); SAT O2 ABG 99 % (92-99)
[2021-02-17 03:00] VITALS: BP 153/91
[2021-02-17 04:09] LABS: FIO2 ABG 55; PCO2 ABG 105 mmHg (35-46)
[2021-02-17 05:42] LABS: BASE EXCESS ABG 14 mmol/L (-3-3); HCO3 ABG 46 mmol/L (21-28); PO2 ABG 138 mmHg (65-108); SAT O2 ABG 98 % (92-99)
[2021-02-17 05:44] LABS: FIO2 ABG 60%; PCO2 ABG 94 mmHg (35-46)
[2021-02-17 07:00] VITALS: BP 126/65
[2021-02-17 07:47] LABS: BASE EXCESS ABG 15 mmol/L (-3-3); HCO3 ABG 46 mmol/L (21-28); PO2 ABG 53 mmHg (65-108); SAT O2 ABG 88 % (92-99)
[2021-02-17 07:53] LABS: FIO2 ABG 35% BIPAP; PCO2 ABG 90 mmHg (35-46)
[2021-02-17] MEDS ORDERED: DOCUSATE SODIUM 100 MG CAPSULE. PO PRN (09:00)
[2021-02-17] MEDS ORDERED: SENNOSIDES 8.6 MG TABLET PO PRN (09:00)
[2021-02-17] MEDS ORDERED: DEXTROSE 50% 25 GM / 50ML DISP.SYRIN. IV PRN (09:00)
[2021-02-17] MEDS ORDERED: ONDANSETRON PF 4 MG/2 ML VIAL. IVP PRN (09:00)
--- NOTE | 2021-02-17 09:02 | PDOC1 ---
History and Physical Date of Service: DOS: DATE: 02/17/21 TIME: 08:59 Chief Complaint: Chief Complain: Shortness of breath History of Present Illness: HPI: 60-year-old female with past medical history of COPD who states she has worsening dyspnea over the last several days. She is on home oxygen between 2 to 4 L nasal cannula and on CPAP at night. Patient states she is compliant with her CPAP machine however she does complain that sometimes the machine does not give her adequate pressure sometimes and may be sometimes too much pressure. She is unsure when his last time she titrated her machine. She will attempt to call sleep care today to try to give her a new machine. She denies any recent exposure to Covid patients. Denies fevers, chest pain, abdominal pain, diarrhea or loss of smell or syncope or palpitations. She also endorses increased O2 supplementation requirements in the last 3 days. Past Medical/Surgical History: PMH/PSH: Past Medical History: COPD BLOCKED BILAT ARTERIES Past Surgical History: "NECK SURGERY" Allergies: Allergies: Coded Allergies: Penicillins (Verified Allergy, Severe, Anaphylaxis, 08/26/18) Family History: Family History: Reviewed with no pertinent findings Social History: Social History: Smoking Status: Current Every Day Smoker, smoking since he was 11 for about. 4 to 5 packs/day. She now only smokes about 5 cigarettes/day Alcohol Use: None Drug Use: None Current Medications: Current Medications Current Medications Albuterol/ Ipratropium (Duoneb) 3 ml 1X ONCE NEB Last administered on 02/16/21at 23:45; Start 02/16/21 at 23:45; Stop 02/16/21 at 23:46; Status DC Dexamethasone Sodium Phosphate (Decadron) 10 mg 1X ONCE IVP Last administered on 02/17/21at 00:00; Start 02/16/21 at 23:45; Stop 02/16/21 at 23:46; Status DC Albuterol/ Ipratropium (Duoneb) 3 ml 1X ONCE NEB Last administered on 02/17/21at 01:00; Start 02/17/21 at 01:00; Stop 02/17/21 at 01:01; Status DC Ondansetron HCl (Zofran) 4 mg PRN Q8HRS PRN IV NAUSEA/VOMITING 1ST CHOICE; Start 02/17/21 at 01:00; Stop 02/18/21 at 00:59 Acetaminophen (Tylenol) 650 mg PRN Q4HRS PRN PO FEVER > 100.3'F; Start 02/17/21 at 01:00; Stop 02/18/21 at 00:59 Albuterol Sulfate (Ventolin Neb Soln) 2.5 mg PRN Q4HRS PRN NEB WHEEZING; Start 02/17/21 at 01:00 Active Scripts Active Atrovent Hfa (Ipratropium [place]) 12.9 Gm Hfa.aer.ad 2 Puff IH QID Proair Hfa (Albuterol Sulfate) 8.5 Gm Hfa.aer.ad 1 Puff INH PRN Q6HRS PRN 7 Days Zithromax (Azithromycin) 250 Mg Tablet 1 Pkg PO UD Prednisone 20 Mg Tablet 1 Tab PO UD 12 Days Take 2 tabs days 1,2,3 1.5 tabs days 3,4,5 1 tab days 6,7,8 0.5 tab days 9,10,11 [Pantoprazole] 40 MG Tablet.dr 40 Mg PO DAILYAC 30 Days Cardizem Cd (Diltiazem Hcl) 180 Mg Cap.er.24h 1 Cap PO DAILY Budesonide 0.25 Mg/2 Ml Ampul.neb 1 Vial NEB BID Culturelle (Lactobacillus Rhamnosus Gg) 1 Each Cap.sprink 1 Cap PO BID 14 Days Duoneb 0.5-3(2.5) Mg/3 Ml (Albuterol/Ipratropium) 3 Ml Ampul.neb 3 Ml NEB RTQID 30 Days Proair Hfa Inhaler (Albuterol Sulfate) 8.5 Gm Hfa.aer.ad 2 Puff INH PRN Q6HRS PRN 30 Days Reported Aspirin 81 Mg Tab.chew 1 Tab PO DAILY ROS: Review of Systems Review of System REVIEW OF SYSTEMS: GENERAL: Denies weakness SKIN: No bruising, hair changes or rashes. EYES: No blurred, double or loss of vision. NOSE AND THROAT: No history of nosebleeds, hoarseness or sore throat. HEART: No history of palpitations, chest pain or shortness of breath on exertion. LUNGS: Denies cough, hemoptysis, wheezing or shortness of breath. GASTROINTESTINAL: Denies changes in appetite, nausea, vomiting, diarrhea or constipation. GENITOURINARY: No history of frequency, urgency, hesitancy or nocturia. NEUROLOGIC: Denies history of numbness, tingling, or tremor. PSYCHIATRIC: No history of panic, anxiety or depression. ENDOCRINE: No history of heat or cold intolerance, polyuria or polydipsia. EXTREMITIES: Denies joint pain, pain on walking or stiffness. Physical Exam: Vital Signs: Vital Signs Date Time Temp Pulse Resp B/P (MAP) Pulse Ox O2 Delivery O2 Flow Rate FiO2 02/17/21 07:18 89 02/17/21 04:41 BiPAP/CPAP 02/17/21 03:07 88 119/78 (92) 02/17/21 03:00 98.0 25 98.0 02/17/21 00:45 3.0 Physcial Exam: GEN: Alert and awake and oriented. Mild distress. HEENT: Normal cephalic, atraumatic, external auditory canals are patent EYES: Extraocular muscles are intact, pupil are equally round and reactive to light and accommodation MUSCULOSKELETAL: Well developed , well nourished, good range of motion ENDOCRINE: No thyromegaly was palpated LYMPHATICS: No cervical chain or axillary nodes were noted HEMATOPOIETIC: No bruising NECK: Supple, no JVD, no thyromegaly was noted LUNGS: Bilateral decreased breath sounds. Accessory muscle use for breathing. Mildly dyspneic on visualization. HEART: RRR, S!, S2 present. Peripheral pulses intact, no obvious murmurs noted ABDOMEN: Soft, nontender. Positive bowel sounds, no organomegaly, normal bowel sounds EXTREMITIES: Without clubbing, cyanosis, or edema. Pedal pulses intact. Negative Homans sign NEUROLOGIC: Normal speech and tone. A&O x 3, moves all extremities, no obvious focal deficits PSYCHIATRIC: Normal affect, normal mood. Stable SKIN: No ulcerations or rashes, good skin turgor, no jaundice VASCULAR: Good capillary refill, neurovascular bundle appears to be intact Labs: Labs: Laboratory Tests Test 02/16/21 23:15 02/17/21 00:44 02/17/21 02:41 02/17/21 05:30 White Blood Count 8.8 x10^3/uL (4.0-11.0) Red Blood Count 4.73 x10^6/uL (3.50-5.40) Hemoglobin 15.5 g/dL (12.0-15.5) Hematocrit 46.3 % (36.0-47.0) Mean Corpuscular Volume 98 fL (79-100) Mean Corpuscular Hemoglobin 33 pg (25-35) Mean Corpuscular Hemoglobin Concent 34 g/dL (31-37) Red Cell Distribution Width 13.2 % (11.5-14.5) Platelet Count 197 x10^3/uL (140-400) Neutrophils (%) (Auto) 79 % (31-73) Lymphocytes (%) (Auto) 12 % (24-48) Monocytes (%) (Auto) 8 % (0-9) Eosinophils (%) (Auto) 1 % (0-3) Basophils (%) (Auto) 1 % (0-3) Neutrophils # (Auto) 6.9 x10^3/uL (1.8-7.7) Lymphocytes # (Auto) 1.0 x10^3/uL (1.0-4.8) Monocytes # (Auto) 0.7 x10^3/uL (0.0-1.1) Eosinophils # (Auto) 0.1 x10^3/uL (0.0-0.7) Basophils # (Auto) 0.1 x10^3/uL (0.0-0.2) D-Dimer (Meryl) 0.62 ug/mlFEU (0.00-0.50) Sodium Level 140 mmol/L (136-145) Potassium Level 4.1 mmol/L (3.5-5.1) Chloride Level 99 mmol/L (98-107) Carbon Dioxide Level 45 mmol/L (21-32) Anion Gap (6-14) Blood Urea Nitrogen 5 mg/dL (7-20) Creatinine 0.5 mg/dL (0.6-1.0) Estimated GFR (Cockcroft-Gault) 125.0 BUN/Creatinine Ratio 10 (6-20) Glucose Level 135 mg/dL (70-99) Calcium Level 9.1 mg/dL (8.5-10.1) Magnesium Level 2.1 mg/dL (1.8-2.4) Total Bilirubin 0.4 mg/dL (0.2-1.0) Aspartate Amino Transf (AST/SGOT) 19 U/L (15-37) Alanine Aminotransferase (ALT/SGPT) 21 U/L (14-59) Alkaline Phosphatase 97 U/L (46-116) Creatine Kinase 24 U/L (26-192) Creatine Kinase MB (Mass) 0.6 ng/mL (0.0-3.6) Creatine Kinase MB Relative Index % (0-4) Troponin I Quantitative < 0.017 ng/mL (0.000-0.055) LO-Wcj-R-Type Natriuretic Peptide 86 pg/mL (0-124) Total Protein 7.2 g/dL (6.4-8.2) Albumin 3.6 g/dL (3.4-5.0) Albumin/Globulin Ratio 1.0 (1.0-1.7) O2 Saturation 86 % (92-99) 99 % (92-99) 98 % (92-99) Arterial Blood pH 7.19 (7.35-7.45) 7.28 (7.35-7.45) 7.31 (7.35-7.45) Arterial Blood pCO2 at Patient Temp 140 mmHg (35-46) 105 mmHg (35-46) 94 mmHg (35-46) Arterial Blood pO2 at Patient Temp 55 mmHg (65-108) 168 mmHg (65-108) 138 mmHg (65-108) Arterial Blood HCO3 52 mmol/L (21-28) 48 mmol/L (21-28) 46 mmol/L (21-28) Arterial Blood Base Excess 16 mmol/L (-3-3) 15 mmol/L (-3-3) 14 mmol/L (-3-3) FiO2 32 55 60% Test 02/17/21 07:41 O2 Saturation 88 % (92-99) Arterial Blood pH 7.33 (7.35-7.45) Arterial Blood pCO2 at Patient Temp 90 mmHg (35-46) Arterial Blood pO2 at Patient Temp 53 mmHg (65-108) Arterial Blood HCO3 46 mmol/L (21-28) Arterial Blood Base Excess 15 mmol/L (-3-3) FiO2 35% bipap Laboratory Tests Test 02/16/21 23:15 02/17/21 00:44 02/17/21 02:41 02/17/21 05:30 White Blood Count 8.8 x10^3/uL (4.0-11.0) Red Blood Count 4.73 x10^6/uL (3.50-5.40) Hemoglobin 15.5 g/dL (12.0-15.5) Hematocrit 46.3 % (36.0-47.0) Mean Corpuscular Volume 98 fL (79-100) Mean Corpuscular Hemoglobin 33 pg (25-35) Mean Corpuscular Hemoglobin Concent 34 g/dL (31-37) Red Cell Distribution Width 13.2 % (11.5-14.5) Platelet Count 197 x10^3/uL (140-400) Neutrophils (%) (Auto) 79 % (31-73) Lymphocytes (%) (Auto) 12 % (24-48) Monocytes (%) (Auto) 8 % (0-9) Eosinophils (%) (Auto) 1 % (0-3) Basophils (%) (Auto) 1 % (0-3) Neutrophils # (Auto) 6.9 x10^3/uL (1.8-7.7) Lymphocytes # (Auto) 1.0 x10^3/uL (1.0-4.8) Monocytes # (Auto) 0.7 x10^3/uL (0.0-1.1) Eosinophils # (Auto) 0.1 x10^3/uL (0.0-0.7) Basophils # (Auto) 0.1 x10^3/uL (0.0-0.2) D-Dimer (Meryl) 0.62 ug/mlFEU (0.00-0.50) Sodium Level 140 mmol/L (136-145) Potassium Level 4.1 mmol/L (3.5-5.1) Chloride Level 99 mmol/L (98-107) Carbon Dioxide Level 45 mmol/L (21-32) Anion Gap (6-14) Blood Urea Nitrogen 5 mg/dL (7-20) Creatinine 0.5 mg/dL (0.6-1.0) Estimated GFR (Cockcroft-Gault) 125.0 BUN/Creatinine Ratio 10 (6-20) Glucose Level 135 mg/dL (70-99) Calcium Level 9.1 mg/dL (8.5-10.1) Magnesium Level 2.1 mg/dL (1.8-2.4) Total Bilirubin 0.4 mg/dL (0.2-1.0) Aspartate Amino Transf (AST/SGOT) 19 U/L (15-37) Alanine Aminotransferase (ALT/SGPT) 21 U/L (14-59) Alkaline Phosphatase 97 U/L (46-116) Creatine Kinase 24 U/L (26-192) Creatine Kinase MB (Mass) 0.6 ng/mL (0.0-3.6) Creatine Kinase MB Relative Index % (0-4) Troponin I Quantitative < 0.017 ng/mL (0.000-0.055) TC-Lso-V-Type Natriuretic Peptide 86 pg/mL (0-124) Total Protein 7.2 g/dL (6.4-8.2) Albumin 3.6 g/dL (3.4-5.0) Albumin/Globulin Ratio 1.0 (1.0-1.7) O2 Saturation 86 % (92-99) 99 % (92-99) 98 % (92-99) Arterial Blood pH 7.19 (7.35-7.45) 7.28 (7.35-7.45) 7.31 (7.35-7.45) Arterial Blood pCO2 at Patient Temp 140 mmHg (35-46) 105 mmHg (35-46) 94 mmHg (35-46) Arterial Blood pO2 at Patient Temp 55 mmHg (65-108) 168 mmHg (65-108) 138 mmHg (65-108) Arterial Blood HCO3 52 mmol/L (21-28) 48 mmol/L (21-28) 46 mmol/L (21-28) Arterial Blood Base Excess 16 mmol/L (-3-3) 15 mmol/L (-3-3) 14 mmol/L (-3-3) FiO2 32 55 60% Test 02/17/21 07:41 O2 Saturation 88 % (92-99) Arterial Blood pH 7.33 (7.35-7.45) Arterial Blood pCO2 at Patient Temp 90 mmHg (35-46) Arterial Blood pO2 at Patient Temp 53 mmHg (65-108) Arterial Blood HCO3 46 mmol/L (21-28) Arterial Blood Base Excess 15 mmol/L (-3-3) FiO2 35% bipap Images: Images CXR Impression: 1. Mild interstitial thickening, may relate to chronic interstitial changes although superimposed early pulmonary edema or infection is possible. Assessment/Plan Assessment/Plan Acute hypoxic and hypercapnic respiratory failure requiring BiPAP Acute on chronic COPD exacerbation Elevated D-dimer History of COPD History of SOY on CPAP at night History of bilateral carotid stenosis Tobacco abuse Admit to medicine for further management Pulmonology consult Continue IV Zithromax Continue IV Solu-Medrol O2 supplementation to maintain O2 saturation between 88 to 92% BiPAP as needed during the day and CPAP at night Lovenox for DVT prophylaxis Protonix while on steroids GI prophylaxis ADA diet DNR Discussed with RN and SW Disposition inpatient management as above Surrogate decision maker is the son A total of 55 minutes of critical care time was spent in reviewing chart, labs, and images. Discussed with RN and SW. Goals of Care: Advance Care Planning: Total time spent [id number] with patient greater than 16 minutes in discussion with goals of care, comfort care, end-of-life care, pain management, code status. At this point patient wishes to be DNR and does want to consider the fact of home with hospice. She states "I do not want to in the hospital" Justifications for Admission Other Justification AISHA MONTANA MD Feb 17, 2021 09:02
[2021-02-17] MEDS: ENOXAPARIN 40 MG/0.4 ML SYRINGE. SQ SCH ×2 (10:41→11:00)
[2021-02-17] MEDS: ASCORBIC ACID 1,000 MG TABLET PO SCH ×2 (10:41→14:00)
[2021-02-17 11:00] VITALS: BP 105/84
[2021-02-17] MEDS ORDERED: AZITHROMYCIN 500 MG in IV NORMAL SALINE 250ML 250 ML IV SCH (11:00)
[2021-02-17] MEDS ORDERED: methylPREDNISolone SOD SUCC PF 40 MG/ML VIAL. IV SCH (11:00)
[2021-02-17] MEDS ORDERED: THIAMINE 100 MG TABLET. PO SCH (11:00)
--- NOTE | 2021-02-17 14:42 | PDOC ---
PULMONARY PROGRESS NOTES DATE: 02/17/21 TIME: 14:41 Vitals Vital Signs Date Time Temp Pulse Resp B/P (MAP) Pulse Ox O2 Delivery O2 Flow Rate FiO2 02/17/21 11:20 92 Nasal Cannula 5.0 02/17/21 11:00 98.7 88 18 105/84 (91) 98.7 General: Alert, No acute distress Lungs: Clear Cardiovascular: S1 Abdomen: Soft Extremities: No Edema Labs Laboratory Tests Test 02/16/21 23:15 02/17/21 00:44 02/17/21 02:41 02/17/21 05:30 White Blood Count 8.8 x10^3/uL (4.0-11.0) Red Blood Count 4.73 x10^6/uL (3.50-5.40) Hemoglobin 15.5 g/dL (12.0-15.5) Hematocrit 46.3 % (36.0-47.0) Mean Corpuscular Volume 98 fL (79-100) Mean Corpuscular Hemoglobin 33 pg (25-35) Mean Corpuscular Hemoglobin Concent 34 g/dL (31-37) Red Cell Distribution Width 13.2 % (11.5-14.5) Platelet Count 197 x10^3/uL (140-400) Neutrophils (%) (Auto) 79 % (31-73) Lymphocytes (%) (Auto) 12 % (24-48) Monocytes (%) (Auto) 8 % (0-9) Eosinophils (%) (Auto) 1 % (0-3) Basophils (%) (Auto) 1 % (0-3) Neutrophils # (Auto) 6.9 x10^3/uL (1.8-7.7) Lymphocytes # (Auto) 1.0 x10^3/uL (1.0-4.8) Monocytes # (Auto) 0.7 x10^3/uL (0.0-1.1) Eosinophils # (Auto) 0.1 x10^3/uL (0.0-0.7) Basophils # (Auto) 0.1 x10^3/uL (0.0-0.2) D-Dimer (Meryl) 0.62 ug/mlFEU (0.00-0.50) Sodium Level 140 mmol/L (136-145) Potassium Level 4.1 mmol/L (3.5-5.1) Chloride Level 99 mmol/L (98-107) Carbon Dioxide Level 45 mmol/L (21-32) Anion Gap (6-14) Blood Urea Nitrogen 5 mg/dL (7-20) Creatinine 0.5 mg/dL (0.6-1.0) Estimated GFR (Cockcroft-Gault) 125.0 BUN/Creatinine Ratio 10 (6-20) Glucose Level 135 mg/dL (70-99) Calcium Level 9.1 mg/dL (8.5-10.1) Magnesium Level 2.1 mg/dL (1.8-2.4) Total Bilirubin 0.4 mg/dL (0.2-1.0) Aspartate Amino Transf (AST/SGOT) 19 U/L (15-37) Alanine Aminotransferase (ALT/SGPT) 21 U/L (14-59) Alkaline Phosphatase 97 U/L (46-116) Creatine Kinase 24 U/L (26-192) Creatine Kinase MB (Mass) 0.6 ng/mL (0.0-3.6) Creatine Kinase MB Relative Index % (0-4) Troponin I Quantitative < 0.017 ng/mL (0.000-0.055) VJ-Ctl-U-Type Natriuretic Peptide 86 pg/mL (0-124) Total Protein 7.2 g/dL (6.4-8.2) Albumin 3.6 g/dL (3.4-5.0) Albumin/Globulin Ratio 1.0 (1.0-1.7) O2 Saturation 86 % (92-99) 99 % (92-99) 98 % (92-99) Arterial Blood pH 7.19 (7.35-7.45) 7.28 (7.35-7.45) 7.31 (7.35-7.45) Arterial Blood pCO2 at Patient Temp 140 mmHg (35-46) 105 mmHg (35-46) 94 mmHg (35-46) Arterial Blood pO2 at Patient Temp 55 mmHg (65-108) 168 mmHg (65-108) 138 mmHg (65-108) Arterial Blood HCO3 52 mmol/L (21-28) 48 mmol/L (21-28) 46 mmol/L (21-28) Arterial Blood Base Excess 16 mmol/L (-3-3) 15 mmol/L (-3-3) 14 mmol/L (-3-3) FiO2 32 55 60% Test 02/17/21 07:41 O2 Saturation 88 % (92-99) Arterial Blood pH 7.33 (7.35-7.45) Arterial Blood pCO2 at Patient Temp 90 mmHg (35-46) Arterial Blood pO2 at Patient Temp 53 mmHg (65-108) Arterial Blood HCO3 46 mmol/L (21-28) Arterial Blood Base Excess 15 mmol/L (-3-3) FiO2 35% bipap Laboratory Tests Test 02/16/21 23:15 02/17/21 00:44 02/17/21 02:41 02/17/21 05:30 White Blood Count 8.8 x10^3/uL (4.0-11.0) Red Blood Count 4.73 x10^6/uL (3.50-5.40) Hemoglobin 15.5 g/dL (12.0-15.5) Hematocrit 46.3 % (36.0-47.0) Mean Corpuscular Volume 98 fL (79-100) Mean Corpuscular Hemoglobin 33 pg (25-35) Mean Corpuscular Hemoglobin Concent 34 g/dL (31-37) Red Cell Distribution Width 13.2 % (11.5-14.5) Platelet Count 197 x10^3/uL (140-400) Neutrophils (%) (Auto) 79 % (31-73) Lymphocytes (%) (Auto) 12 % (24-48) Monocytes (%) (Auto) 8 % (0-9) Eosinophils (%) (Auto) 1 % (0-3) Basophils (%) (Auto) 1 % (0-3) Neutrophils # (Auto) 6.9 x10^3/uL (1.8-7.7) Lymphocytes # (Auto) 1.0 x10^3/uL (1.0-4.8) Monocytes # (Auto) 0.7 x10^3/uL (0.0-1.1) Eosinophils # (Auto) 0.1 x10^3/uL (0.0-0.7) Basophils # (Auto) 0.1 x10^3/uL (0.0-0.2) D-Dimer (Meryl) 0.62 ug/mlFEU (0.00-0.50) Sodium Level 140 mmol/L (136-145) Potassium Level 4.1 mmol/L (3.5-5.1) Chloride Level 99 mmol/L (98-107) Carbon Dioxide Level 45 mmol/L (21-32) Anion Gap (6-14) Blood Urea Nitrogen 5 mg/dL (7-20) Creatinine 0.5 mg/dL (0.6-1.0) Estimated GFR (Cockcroft-Gault) 125.0 BUN/Creatinine Ratio 10 (6-20) Glucose Level 135 mg/dL (70-99) Calcium Level 9.1 mg/dL (8.5-10.1) Magnesium Level 2.1 mg/dL (1.8-2.4) Total Bilirubin 0.4 mg/dL (0.2-1.0) Aspartate Amino Transf (AST/SGOT) 19 U/L (15-37) Alanine Aminotransferase (ALT/SGPT) 21 U/L (14-59) Alkaline Phosphatase 97 U/L (46-116) Creatine Kinase 24 U/L (26-192) Creatine Kinase MB (Mass) 0.6 ng/mL (0.0-3.6) Creatine Kinase MB Relative Index % (0-4) Troponin I Quantitative < 0.017 ng/mL (0.000-0.055) FC-Ncp-N-Type Natriuretic Peptide 86 pg/mL (0-124) Total Protein 7.2 g/dL (6.4-8.2) Albumin 3.6 g/dL (3.4-5.0) Albumin/Globulin Ratio 1.0 (1.0-1.7) O2 Saturation 86 % (92-99) 99 % (92-99) 98 % (92-99) Arterial Blood pH 7.19 (7.35-7.45) 7.28 (7.35-7.45) 7.31 (7.35-7.45) Arterial Blood pCO2 at Patient Temp 140 mmHg (35-46) 105 mmHg (35-46) 94 mmHg (35-46) Arterial Blood pO2 at Patient Temp 55 mmHg (65-108) 168 mmHg (65-108) 138 mmHg (65-108) Arterial Blood HCO3 52 mmol/L (21-28) 48 mmol/L (21-28) 46 mmol/L (21-28) Arterial Blood Base Excess 16 mmol/L (-3-3) 15 mmol/L (-3-3) 14 mmol/L (-3-3) FiO2 32 55 60% Test 02/17/21 07:41 O2 Saturation 88 % (92-99) Arterial Blood pH 7.33 (7.35-7.45) Arterial Blood pCO2 at Patient Temp 90 mmHg (35-46) Arterial Blood pO2 at Patient Temp 53 mmHg (65-108) Arterial Blood HCO3 46 mmol/L (21-28) Arterial Blood Base Excess 15 mmol/L (-3-3) FiO2 35% bipap Medications Active Scripts Medications Dose Route/Sig Max Daily Dose Days Date Category Dose Instructions Atrovent Hfa (Ipratropium [place]) 12.9 Gm Hfa.aer.ad 2 Puff IH QID 05/22/20 Rx Proair Hfa (Albuterol Sulfate) 8.5 Gm Hfa.aer.ad 1 Puff INH PRN Q6HRS PRN 7 05/22/20 Rx Zithromax (Azithromycin) 250 Mg Tablet 1 Pkg PO UD 05/22/20 Rx Prednisone 20 Mg Tablet 1 Tab PO UD 12 05/22/20 Rx Take 2 tabs days 1,2,3 1.5 tabs days 3,4,5 1 tab days 6,7,8 0.5 tab days 9,10,11 [Pantoprazole] 40 MG Tablet.dr 40 Mg PO DAILYAC 30 03/12/18 Rx Cardizem Cd (Diltiazem Hcl) 180 Mg Cap.er.24h 1 Cap PO DAILY 03/12/18 Rx Budesonide 0.25 Mg/2 Ml Ampul.neb 1 Vial NEB BID 03/12/18 Rx Culturelle (Lactobacillus Rhamnosus Gg) 1 Each Cap.sprink 1 Cap PO BID 14 03/12/18 Rx Duoneb 0.5-3(2.5) Mg/3 Ml (Albuterol/Ipratropium) 3 Ml Ampul.neb 3 Ml NEB RTQID 30 03/12/18 Rx Proair Hfa Inhaler (Albuterol Sulfate) 8.5 Gm Hfa.aer.ad 2 Puff INH PRN Q6HRS PRN 30 03/12/18 Rx Aspirin 81 Mg Tab.chew 1 Tab PO DAILY 05/06/16 Reported Impression . Acute on chronic hypoxemic hypercapnic respiratory failure Acute exacerbation of COPD possible COVID-19 Patient is adamant about the being discharged We will obtain CT chest to better delineate the interstitium rule out interstitial lung disease. Clinical suspicion for PE is low considering her D- dimer being slightly elevated will include contrast to rule out PE The above was discussed with the nurse Patient agreed to stay for the CT chest NELSON RUDD MD Feb 17, 2021 14:42
--- NOTE | 2021-02-17 14:59 | CONS ---
DATE OF CONSULTATION: 02/17/2021 ATTENDING PHYSICIAN: Dr. Heri Perez. REASON FOR CONSULTATION: The patient is seen in pulmonary consultation at the request of Dr. Perez for increasing shortness of air, chronic respiratory failure, COPD. Initial arterial blood gas revealed a pH of 7.19, PaCO2 of 140, pO2 of 55. Currently the patient is on 4 liters of oxygen, her O2 sats were dropping at times down to 86 to 87. HISTORY OF PRESENT ILLNESS: The patient is a 60-year-old with a history of chronic respiratory failure, normally at home at 3-4 liters. She states that she has been increasingly more short of breath over the last 2-3 days. She normally wears CPAP at home. She presented because of increasing shortness of breath. She was found to have an initial blood gas revealing a pH of 7.19, PaCO2 of 140, pO2 of 55. She was placed on BiPAP. Repeat arterial blood gas this morning, pH of 7.33, PaCO2 of 90, pO2 of 53. The patient is adamant about the possibility of going home. She states that she wishes to go home. I informed her that it was unsafe for her to go home. In addition, her COVID-19 test is pending. I reviewed her x-ray, which revealed some ill-defined interstitial markings, possibly interstitial lung disease, pulmonary edema. The patient denies fever, chills, night sweats. No COVID-19 exposures. She has not been vaccinated for COVID-19. She continues to smoke approximately 4-5 cigarettes per day. Denies any acute onset of shortness of air associated with pleurisy, syncope or near syncopal episodes. PAST MEDICAL HISTORY: Obstructive sleep apnea; normally wears CPAP with oxygen supplementation; peripheral arterial disease; states she has had previous left carotid endarterectomy; tobacco dependent; COPD, severe, suspect emphysematous changes. ALLERGIES: LISTED TO PENICILLIN. FAMILY HISTORY: Remarkable for COPD. SOCIAL HISTORY: She continues to smoke. Denies any alcohol intake. ALLERGIES: PENICILLIN, APPARENTLY ANAPHYLACTIC REACTION. CURRENT MEDICATIONS: List was reviewed. HOME MEDICATION: List was reviewed. REVIEW OF SYSTEMS: As indicated in the history of present illness. Otherwise, other systems were reviewed and negative. PHYSICAL EXAMINATION: VITAL SIGNS: Stable. O2 saturation was greater than 92%. HEENT: Eyes: The sclerae were nonicteric. NECK: Jugular venous distention was not elevated. No lymphadenopathy. CHEST: Full expansion. LUNGS: Very poor air flow with no wheezes. CARDIOVASCULAR: Regular rate and rhythm with S1, S2, no S3. ABDOMEN: Soft, nontender, nondistended. EXTREMITIES: No clubbing, cyanosis or pitting edema . LABORATORY DATA: Arterial blood as indicated above. White count was normal. Hemoglobin and hematocrit were normal. Electrolytes were normal. BUN and creatinine were normal. D-dimer was 0.62. IMPRESSION: 1. Acute on chronic hypoxemic hypercapnic respiratory failure. 2. Acute exacerbation of chronic obstructive pulmonary disease. 3. Abnormal x-ray revealing possible interstitial lung disease. 4. Tobacco dependent. 5. 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 6. Peripheral arterial disease. 7. Obstructive sleep apnea. DISCUSSION: I informed the patient that she will undergo CT angiogram to rule out PE. I do not think that she has PE, but we will proceed with ruling out PE. In addition, this will give me a better look at the interstitium. For now, I recommend that she stay and we will continue oxygen supplementation and p.r.n. BiPAP. The patient is adamant about being discharged. I answered all of her questions. She was missed informed about the fact that she would have to stay here if her SARS-CoV-2 testing was positive. I reassured her that she could still be discharged home despite the fact that her SARS-CoV-2 may come back positive. PLAN: 1. As indicated above. 2. Continue steroids and antibiotics. 3. Nebulized treatments. 4. CT angiogram to rule out PE. 5. Avoid excessive oxygen supplementation. 6. The patient instructed on the importance of obtaining the COVID-19 vaccination. 7. The patient instructed on the importance of discontinuing tobacco. I do appreciate the privilege in sharing in the patient's care. NELSON RUDD MD DR: GUIDO/louis JOB#: [id number] / [id number]
[2021-02-17 15:00] VITALS: BP 120/80
[2021-02-17] MEDS ORDERED: CONTRAST GIVEN. MC PRN (15:45)
[2021-02-17] MEDS ORDERED: IOHEXOL 350 MG/ML 100 ML VIAL. IV ONE (15:45)
--- NOTE | 2021-02-17 16:25 | RAD ---
Exam: CT of chest with contrast INDICATION: Hypoxemia TECHNIQUE: Sequential axial images through the chest obtained following the administration 100 mL of Omni 350 IV contrast. Sagittal and coronal reformatted images were reconstructed from the axial data and reviewed. 3-D reformatted images were reconstructed from the axial data and reviewed. Comparisons: 02/16/2021 FINDINGS: Visual is portions of the thyroid are unremarkable. No enlarged mediastinal lymph nodes are identifie d. Heart size is normal. No pericardial effusion. Mild coronary artery calcification. Thoracic aorta has a normal course and caliber. Pulmonary artery is not enlarged. No pulmonary embolus identified withi n the main, lobar or segmental pulmonary arteries. Airways are patent. There is moderate centrilobular emphysematous changes noted at the upper lungs. N o consolidation or pneumothorax. No suspicious lung nodules. No pleural effusion or thickening. Visualized upper abdomen is unremarkable. No suspicious osseous lesions or acute fractures. IMPRESSION: No pulmonary embolus identified within the main, lobar or segmental pulmonary arteries. Exposure: One or more of the following in the visualized dose reduction techniques were utilized for this examination: 1. Automated exposure control 2. Adjustment of the MA and/or KV according to patient size 3. Use of iterative of reconstructive technique Electronically signed by: Carmen Diaz MD (02/17/2021 4:23 PM) [facility]
--- NOTE | 2021-02-17 17:30 | NUR ---
Discharge Note: ELEAZAR MEDEIROS D6 SOUTH The patient left AMA Discontinued lines and drains: 20 gauge right FA, tip intact. patient tolerated well. Patient left AMA via son.
--- NOTE | 2021-02-19 09:07 | NUR ---
IP: Informed pt of negative COVID test. Pt verbalized understanding.
--- NOTE | 2021-02-19 09:17 | PDOC3 ---
[facility]-Discharge Summary Discharge Diagnosis: Discharge Diagnosis: Acute hypoxic and hypercapnic respiratory failure requiring BiPAP Acute on chronic COPD exacerbation Elevated D-dimer History of COPD History of SOY on CPAP at night History of bilateral carotid stenosis Tobacco abuse Consults: Consults: DISCUSSION: I informed the patient that she will undergo CT angiogram to rule out PE. I do not think that she has PE, but we will proceed with ruling out PE. In addition, this will give me a better look at the interstitium. For now, I recommend that she stay and we will continue oxygen supplementation and p.r.n. BiPAP. The patient is adamant about being discharged. I answered all of her questions. She was missed informed about the fact that she would have to stay here if her SARS-CoV-2 testing was positive. I reassured her that she could still be discharged home despite the fact that her SARS-CoV-2 may come back positive. PLAN: 1. As indicated above. 2. Continue steroids and antibiotics. 3. Nebulized treatments. 4. CT angiogram to rule out PE. 5. Avoid excessive oxygen supplementation. 6. The patient instructed on the importance of obtaining the COVID-19 vaccination. 7. The patient instructed on the importance of discontinuing tobacco. Hospital Course: Hospital Course: 60-year-old female with past medical history of COPD who states she has worsening dyspnea over the last several days. She is on home oxygen between 2 to 4 L nasal cannula and on CPAP at night. Patient states she is compliant with her CPAP machine however she does complain that sometimes the machine does not give her adequate pressure sometimes and may be sometimes too much pressure. She is unsure when his last time she titrated her machine. She will attempt to call sleep care today to try to give her a new machine. She denies any recent exposure to Covid patients. Denies fevers, chest pain, abdominal pain, diarrhea or loss of smell or syncope or palpitations. She also endorses increased O2 supplementation requirements in the last 3 days. Advance Care Planning: Total time spent [id number] with patient greater than 16 minutes in discussion with goals of care, comfort care, end-of-life care, pain management, code status. At this point patient wishes to be DNR and does want to consider the fact of home with hospice. She states "I do not want to in the hospital" Per Dr. [place] request met with patient at bedside to discuss hospice - stated not really interested because she had had a bad experience with Hospice when her mother was ill and . Explained to patient different hospices and different diagnosis - phamplets for 4 hospice agencies provided to the patient - explained that when she got home and read thru them that if she selected one, she could call and they would come and visit with her and then contact her primary care physician, Dr. East. Patient agreeable - she would take the phamplets and read them at home. D/W RN Tami Disposition: Disposition/Orders: Other (Left AMA) Activity: Activity: Resume previous activity Diet: Diet: Cardiac Medications: Home Meds Active Scripts Ipratropium Clare (ATROVENT HFA) 12.9 Gm Hfa.aer.ad, 2 PUFF IH QID, #12.9 GM 5 Refills Prov:MARKO MARIE I DO 05/22/20 Albuterol Sulfate (Proair Hfa) 8.5 Gm Hfa.aer.ad, 1 PUFF INH PRN Q6HRS PRN for SHORTNESS OF BREATH for 7 Days, #14 INHALER Prov:MARKO MARIE I DO 05/22/20 Azithromycin (ZITHROMAX) 250 Mg Tablet, 1 PKG PO UD, #6 TAB Prov:MARKO MARIE I DO 05/22/20 Prednisone (PREDNISONE) 20 Mg Tablet, 1 TAB PO UD for 12 Days, #15 TAB Take 2 tabs days 1,2,3 1.5 tabs days 3,4,5 1 tab days 6,7,8 0.5 tab days 9,10,11 Prov:MARKO MARIE DO 05/22/20 [Pantoprazole] 40 MG TABLET.DR Heath Conflict Check, 40 MG PO DAILYAC for 30 Days, 3 Refills Prov:DOUGLAS FITZGERALD MD 03/12/18 Diltiazem Hcl (CARDIZEM CD) 180 Mg Cap.er.24h, 1 CAP PO DAILY, #30 CAP 5 Refills Prov:DOUGLAS FITZGERALD MD 03/12/18 Budesonide (BUDESONIDE) 0.25 Mg/2 Ml Ampul.neb, 1 VIAL NEB BID, #60 ML Prov:DOUGLAS FITZGERALD MD 03/12/18 Lactobacillus Rhamnosus Gg (CULTURELLE) 1 Each Cap.sprink, 1 CAP PO BID for 14 Days, #28 CAP 0 Refills Prov:DOUGLAS FITZGERALD MD 03/12/18 Ipratropium/Albuterol Sulfate (DUONEB 0.5-3(2.5) MG/3 ML) 3 Ml Ampul.neb, 3 ML NEB RTQID for 30 Days, #120 EACH 4 Refills Prov:DOUGLAS FITZGERALD MD 03/12/18 Albuterol Sulfate (PROAIR HFA INHALER) 8.5 Gm Hfa.aer.ad, 2 PUFF INH PRN Q6HRS PRN for SHORTNESS OF BREATH for 30 Days, #1 INHALER 0 Refills Prov:DOUGLAS FITZGERALD MD 03/12/18 Reported Medications Aspirin (ASPIRIN) 81 Mg Tab.chew, 1 TAB PO DAILY, #30 TAB 3 Refills 05/06/16 Scheduled Aspirin (Aspirin), 1 TAB PO DAILY, (Reported) Azithromycin (Zithromax), 1 PKG PO UD Budesonide (Budesonide), 1 VIAL NEB BID Diltiazem Hcl (Cardizem Cd), 1 CAP PO DAILY Ipratropium Clare (Atrovent Hfa), 2 PUFF IH QID Ipratropium/Albuterol Sulfate (Duoneb 0.5-3(2.5) Mg/3 Ml), 3 ML NEB RTQID Lactobacillus Rhamnosus Gg (Culturelle), 1 CAP PO BID Prednisone (Prednisone), 1 TAB PO UD [Pantoprazole], 40 MG PO DAILYAC Scheduled PRN Albuterol Sulfate (Proair Hfa Inhaler), 2 PUFF INH PRN Q6HRS PRN for SHORTNESS OF BREATH Albuterol Sulfate (Proair Hfa), 1 PUFF INH PRN Q6HRS PRN for SHORTNESS OF BREATH Total Time: Total Time: Total time spent was 55 minutes in preparing scripts, discharge planning with SW and RN, and preparing this discharge summary. Patient seen and examined on day of discharge. Justicifation of Admission Dx: Justifications for Admission: Justification of Admission Dx: N/A AISHA MONTANA MD Feb 19, 2021 09:16
== END 2021-02-17 17:00 | disposition left against medical advice (07) | DRG 189 ==
LOC: ER 23:00 → 6 SOUTH 02-17 01:23
PROVIDERS: ADMIT Internal Medicine; ATTEND Internal Medicine
PROC: 5A09357 Assistance with Respiratory Ventilation, Less than 24 Consecutive Hours, Continuous Positive Airway Pressure (ICD-10-PCS; principal; 2021-02-17)
DX: J96.21 Acute and chronic respiratory failure with hypoxia (principal); J44.1 Chronic obstructive pulmonary disease with (acute) exacerbation; Z66 Do not resuscitate; F17.210 Nicotine dependence, cigarettes, uncomplicated; J96.22 Acute and chronic respiratory failure with hypercapnia; G47.33 Obstructive sleep apnea (adult) (pediatric); I73.9 Peripheral vascular disease, unspecified; Z53.29 Procedure and treatment not carried out because of patient's decision for other reasons; Z20.822 Contact with and (suspected) exposure to COVID-19; Z82.5 Family history of asthma and other chronic lower respiratory diseases; Z88.0 Allergy status to penicillin
CPT/HCPCS: 36415; 36600; 71045; 71275; 80053; 82553; 82805; 83735; 83880; 84484; 85025; 85379; 93005; 94640; 94660; 99285; J0456; J1100; J1650; J2920; J7050; Q9967; U0003; U0005; G0378; J7030

== ENCOUNTER → 2021-05-01 | Outpatient (CLI) | payer MEDICARE ==
--- NOTE | 2021-05-01 15:11 | KCIC ---
EXAM: Brain MRI without contrast. HISTORY: Headache. TECHNIQUE: Multiplanar, multisequence magnetic resonance imaging of the brain was performed without c ontrast. COMPARISON: 01/10/2020 FINDINGS: There is no restricted diffusion to suggest acute or subacute infarction. There is no susce ptibility effect to just hemorrhage. There is no mass effect or midline shift. There is no hydrocepha phyllis. There are multiple scattered focal areas of signal change throughout the cerebral white matter a nd susie. The orbits and paranasal sinuses are unremarkable. There is a small amount of right mastoid fluid. Th ere are normal flow voids within the cerebral vessels. There is no suspicious calvarial lesion. There is mild cerebellar tonsillar ectopia measuring approximately 6 mm. This is within limits for conside ration Chiari I malformation. However, there is no deformation of the cerebellar tonsils or effacemen t of the foramen magnum. IMPRESSION: 1. No acute intracranial finding. 2. Multiple scattered areas of signal change within the cerebral white matter and susie, not significa ntly changed compared to the prior exam. This is most commonly due to chronic small vessel disease in patients of this age. 3. Mild cerebellar tonsillar ectopia. Although the degree of ectopia is within borderline limits for consideration of a Chiari I malformation, this may be of no clinical significance given the absence o f associated cerebellar tonsillar deformation or effacement of the foramen magnum. Electronically signed by: Tara Montalvo MD (05/01/2021 3:09 PM) [id number]
== END ==
LOC: KCIC MRI 12:46
PROVIDERS: ATTEND Nurse Practitioner Gerontology
DX: I73.9 Peripheral vascular disease, unspecified (principal); G93.5 Compression of brain; Q04.8 Other specified congenital malformations of brain
CPT/HCPCS: 70551

== ENCOUNTER 2021-10-20 09:08 | Emergency (ER) | payer MEDICARE ==
[~2021-10-20 09:08] MED LIST changes: +CYCL10TA19 PO; -CYCL10TA2 PO
--- NOTE | 2021-10-20 09:26 | PHYS DOC ---
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 EMS was called for respiratory issues this morning and found patient on her bed less responsive. Patient had a pulse in the 40s upon transport which subsequently was lost. EMS reports upon losing pulse patient was noted to be in Vfib, at which point EMS administered defibrillation x 1 and stated CPR. Upon arrival to ED, EMS was notified that patient was a DNR on hospice. A signed DNR letter was faxed to [facility]. History of present illness limited secondary to cardiopulmonary arrest. Review of Systems: Review of Systems: Review of systems limited secondary to cardiopulmonary arrest Heart Score: C/O Chest Pain: N/A Allergies: Allergies: Allergies Coded Allergies Type Severity Reaction Last Updated Verified Penicillins Allergy Severe Anaphylaxis 08/26/18 Yes Physical Exam: PE: Constitutional: Pallor, unresponsive HENT: Normocephalic, atraumatic, prehospital supraglottic airway in place Eyes: Pupils fixed and dilated, conjunctiva normal Neck: Supple, no crepitance, no carotid pulse appreciated Lungs & Thorax: Apnea, bag valve mask with equal chest rise and fall Cardiovascular: NO palpable pulse to left carotid and left femoral arteries, CR > 3 sec Skin: Warm, dry, no erythema, no rash Back: No tenderness, no CVA tenderness Extremities: No deformity, no edema Neurologic: GCS 3, limited due to cardiopulmonary arrest EKG: EKG: [] Radiology/Procedures: Radiology/Procedures: [] Course & Med Decision Making: Course & Med Decision Making Patient presents via EMS in cardiopulmonary arrest. Upon arrival patient found to be a hospice patient with DNR status. A copy of DNR status was faxed to ED shortly after patient's arrival. Patient had just been moved over ED gurney to continue ACLS protocol when this information was found. At that time patient without pulse and therefore time of was called at [id number]. Tootie Disclaimer: Tootie Disclaimer: This electronic medical record was generated, in whole or in part, using a voice recognition dictation system. Departure Departure Impression: Primary Impression: Cardiopulmonary arrest Additional Impression: DNR (do not resuscitate) Disposition: 20 Condition: Referrals: SANJEEV GONCALVES MD (PCP) UMBERTO CLEMENT DO Oct 20, 2021 09:26
== END 2021-10-20 11:30 ==
LOC: ER 09:13
DX: I46.9 Cardiac arrest, cause unspecified (principal); J44.9 Chronic obstructive pulmonary disease, unspecified; F17.200 Nicotine dependence, unspecified, uncomplicated; Z88.0 Allergy status to penicillin
CPT/HCPCS: 99285-25